=== PATIENT | female | born 1980 | race African-American/Black ===

== ENCOUNTER 2016-05-18 15:53 | Inpatient (IN) | payer BC ==
[~2016-05-18] VITALS: Ht 167.6 cm; Wt 88.9 kg
[2016-05-18 16:00] VITALS: BP 144/78
[2016-05-18] MEDS ORDERED: HYDROCHLOROTHIA25 MG ORAL (16:15)
--- NOTE | 2016-05-18 16:52 | Emergency Room Report ---
History of Present Illness General Chief Complaint: General Complaint Source: Patient Present Illness HPI 36 YOF sent here by Dr Sweet for surgery tomorrow for chronic hidradenitis for "multiple years," recently worse, L>R armpit area. Denies fever/chills. Not on Abx. History of HTN. No history of DM. Allergies: Coded Allergies: CEFACLOR (Verified Allergy, Unknown, 05/18/16) Patient History Past Medical History: HTN, other - hidradenitis, HTN Past Surgical History: none Social History: Denies: alcohol use, drug use, smoking Last Menstrual Period: 2011 Now: No Immunizations: UTD Reviewed Nursing Documentation: PMH: Agreed, PSxH: Agreed Nursing Documentation-PMH Past Medical History: No History, Except For Hx Hypertension: Yes Review of Systems All Other Systems: negative except mentioned in HPI Physical Exam Vital Signs Date Time Temp Pulse Resp B/P Pulse Ox O2 Delivery O2 Flow Rate FiO2 05/18/16 16:08 98.4 84 16 143/92 100 Room Air Sp02 EP Interpretation: reviewed, normal General Appearance: normal inspection, well appearing, no apparent distress, alert Head: normocephalic, atraumatic Eyes: bilateral eye EOMI, bilateral eye PERRL ENT: normal ENT inspection, hearing grossly normal, normal voice Neck: normal inspection, full range of motion, supple, no bony tend Respiratory: normal inspection, lungs clear, normal breath sounds, no respiratory distress, no retraction, no wheezing Cardiovascular #1: regular rate, rhythm, no edema Gastrointestinal: normal inspection, normal bowel sounds, non tender, soft, no guarding, no hernia Genitourinary: no CVA tenderness Musculoskeletal: normal inspection, back normal, normal range of motion, Lizz' s Sign negative Neurologic: normal inspection, alert, oriented x3, responsive, cement finisher III-XII nml as tested, motor strength/tone normal, speech normal Psychiatric: normal inspection, judgement/insight normal, mood/affect normal Skin: other - Bilateral L>R areas of fluctuance, ttp, erythema. Medical Decision Making Diagnostic Impression: Primary Impression: Hidradenitis axillaris ER Course 36 YOF with known bilateral hidradenitis. VSS. Afebrile. Pre-op labs, Coags, T&S sent Patient is NPO after admit Endorsed to Dr Rosa for admission med/surg at 5pm EKG Diagnostic Results Rate: normal Rhythm: NSR ST Segments: no acute changes ASA given to the pt in ED: No Rhythm Strip Diag. Results EP Interpretation: yes Rate: 84 Rhythm: NSR, no PVC's, no ectopy Chest X-Ray Diagnostic Results EP Interpretation: Yes Findings: no consolidation, no effusion, no pneumothorax, no acute cardiopulmonary disease Number of Views: 1 Last Vital Signs Date Time Temp Pulse Resp B/P Pulse Ox O2 Delivery O2 Flow Rate FiO2 05/18/16 16:08 98.4 84 16 143/92 100 Room Air Status: improved Disposition: ADMITTED INPATIENT Condition: Serious JEANINE ANGLIN M.D. May 18, 2016 16:52
[2016-05-18 17:03] LABS: BASOPHILS % (AUTO) 0.9 % (0.0-2.0); EOSINOPHILS % (AUTO) 2.6 % (0.0-3.0); LYMPHOCYTES % (AUTO) 31.5 % (20.0-45.0); MEAN CORPUSCULAR HEMOGLOBIN 27.3 PG (27.0-31.0); MEAN CORPUSCULAR HGB CONC 32.2 G/DL (32.0-36.0); MEAN CORPUSCULAR VOLUME 85 FL (80-99); MEAN PLATELET VOLUME 5.3 FL (6.5-10.1); MONOCYTES % (AUTO) 5.1 % (1.0-10.0); NEUTROPHILS % (AUTO) 59.9 % (45.0-75.0); PLATELET COUNT 435 K/UL (150-450); RED BLOOD COUNT 5.17 M/UL (4.20-5.40); RED CELL DISTRIBUTION WIDTH 11.8 % (11.6-14.8); WHITE BLOOD COUNT 10.6 K/UL (4.8-10.8)
[2016-05-18] MEDS ORDERED: Clindamycin 600mg 50 ML IVPB ONE (17:15)
[2016-05-18 17:18] LABS: PROTHROMBIN TIME 9.9 SEC (9.30-11.50)
[2016-05-18 17:27] LABS: ALANINE AMINOTRANSFERASE 29 U/L (3-33); ALBUMIN/GLOBULIN RATIO 1.2 (1.0-2.7); ANION GAP 16 (5-15); ASPARTATE AMINO TRANSFERASE 30 U/L (5-40); CALCIUM 10.1 mg/dL (8.6-10.2); CARBON DIOXIDE 27 mEQ/L (20-30); CHLORIDE 98 mEQ/L (98-107); GLOMERULAR FILTRATION RATE > 60 mL/min (>60); HEMOLYSIS 3; POTASSIUM 3.7 mEQ/L (3.4-4.9); SODIUM 141 mEQ/L (135-145); TOTAL PROTEIN 7.8 g/dL (6.6-8.7)
[2016-05-18 18:08] LABS: APPEARANCE,URINE CLOUDY; KETONES,URINE NEGATIVE (NEGATIVE); LEUKOCYTE ESTERASE ,URINE 2+ (NEGATIVE); NITRITE,URINE NEGATIVE (NEGATIVE); PH,URINE 6 (4.5-8.0); PROTEIN,URINE 1+ (NEGATIVE); UROBILINOGEN,URINE 1 MG/DL (0.0-1.0)
[2016-05-18 18:09] VITALS: BP 142/74
[2016-05-18 18:46] LABS: BACTERIA,URINE MODERATE /HPF; SQUAMOUS EPITHELIAL CELL,UR MANY /LPF (NONE/OCC)
[2016-05-18 19:00] VITALS: BP 139/79
--- NOTE | 2016-05-18 19:29 | History and Physical ---
History of Present Illness General Date patient seen: May 18, 2016 Time patient seen: 19:23 Reason for Hospitalization: General Complaint Present Illness HPI 36 y/o AA female with hx of hydradenitis for several years, not diagnosed until recently. She has significant disease in her bilateral axillae. She has taken abx as an outpatient before (doxy) and that stopped working according to the pt. Denied ever having fevers/chills, never has had surgery. She states that the pain has been increasing lately, preventing her from accomplishing some tasks, and that OTC pain meds are not longer providing relief. She takes hctz for well controlled HTN and claritin for allergies. Denies smoking, occasional alcohol use, no recreational drug use. Allergies: Coded Allergies: CEFACLOR (Verified Allergy, Unknown, 05/18/16) Medication History Scheduled Hydrochlorothiazide* (Hydrochlorothiazide*), 25 MG ORAL DAILY, (Reported) Patient History History Provided By: Patient Healthcare decision maker Resuscitation status Advanced Directive on File Past Medical/Surgical History Past Medical/Surgical History: (1) Hidradenitis axillaris Family History Family History: Patient reports no known family medical history. Social History Social History: (1) No significant social history Review of Systems Constitutional: Denies: chills, fever, malaise, no symptoms, other, see HPI, sweats, weakness Eye: Denies: acuity changes, blurred vision, discharge, double vision, eye pain , no symptoms, nose congestion, nose pain, other, see HPI, tearing ENT: Denies: ear discharge, ear pain, hearing loss, mouth pain, nasal discharge , no symptoms, nose congestion, nose pain, other, see HPI, throat pain, throat swelling Respiratory: Denies: LOPES, cough, no symptoms, orthopnea, other, see HPI, shortness of breath, sputum, stridor, wheezing Cardiovascular: Denies: PND, chest pain, edema, no symptoms, other, palpitations, see HPI, syncope Gastrointestinal: Denies: abdominal pain, constipation, diarrhea, hematemesis, melena, nausea, no symptoms, other, see HPI, vomiting Genitourinary: Denies: discharge, dysuria, frequency, hematuria, incontinence, no symptoms, other, pain, retention, see HPI, urgency, vag bleed/dc Skin: Reports: lesions - bilateral axillae with multiple abscesses, induration , rubor, tenderness to palpation, rash Psychiatric: Denies: HI, SI, anxiety, depressed feelings, emotional problems, hallucinations, no symptoms, other, prior hx, see HPI Neurological: Denies: dizziness, focal weakness, headache, no symptoms, numbness, other, paresthesia, see HPI, seizure, syncope, tingling, tremors Endocrine: Denies: excessive sweating, flushing, increased thirst, increased urine, intolerance to temperature, no symptoms, other, see HPI, unexplained weight loss Hematologic/Lymphatic: Denies: anemia, blood clots, diathesis, easy bleeding, easy bruising, no symptoms, other, see HPI, swollen glands Physical Exam General Appearance: WD/WN, no apparent distress, alert Lines, tubes and drains: peripheral HEENT: normocephalic, atraumatic, anicteric Neck: non-tender, normal alignment, supple Respiratory/Chest: chest wall non-tender, lungs clear, normal breath sounds, no respiratory distress Cardiovascular/Chest: normal peripheral pulses, normal rate, regular rhythm, no gallop/murmur Abdomen: normal bowel sounds, non tender, soft Extremities: normal range of motion, non-tender, normal inspection, no calf tenderness, normal capillary refill Skin Exam: other Neurologic: alert, oriented x 3, responsive, normal mood/affect Last 24 Hour Vital Signs Date Time Temp Pulse Resp B/P Pulse Ox O2 Delivery O2 Flow Rate FiO2 05/18/16 18:50 98.2 89 19 142/74 100 Room Air 05/18/16 18:09 98.2 89 19 142/74 100 Room Air 05/18/16 16:08 98.4 84 16 143/92 100 Room Air 05/18/16 16:00 98.0 80 18 144/78 99 Room Air Laboratory Tests Test 05/18/16 16:35 05/18/16 17:39 White Blood Count 10.6 K/UL (4.8-10.8) Red Blood Count 5.17 M/UL (4.20-5.40) Hemoglobin 14.1 G/DL (12.0-16.0) Hematocrit 43.9 % (37.0-47.0) Mean Corpuscular Volume 85 FL (80-99) Mean Corpuscular Hemoglobin 27.3 PG (27.0-31.0) Mean Corpuscular Hemoglobin Concent 32.2 G/DL (32.0-36.0) Red Cell Distribution Width 11.8 % (11.6-14.8) Platelet Count 435 K/UL (150-450) Mean Platelet Volume 5.3 FL (6.5-10.1) L Neutrophils (%) (Auto) 59.9 % (45.0-75.0) Lymphocytes (%) (Auto) 31.5 % (20.0-45.0) Monocytes (%) (Auto) 5.1 % (1.0-10.0) Eosinophils (%) (Auto) 2.6 % (0.0-3.0) Basophils (%) (Auto) 0.9 % (0.0-2.0) Prothrombin Time 9.9 SEC (9.30-11.50) Prothromb Time International Ratio 1.0 (0.9-1.1) Activated Partial Thromboplast Time 27 SEC (23-33) Sodium Level 141 mEQ/L (135-145) Potassium Level 3.7 mEQ/L (3.4-4.9) Chloride Level 98 mEQ/L (98-107) Carbon Dioxide Level 27 mEQ/L (20-30) Anion Gap 16 (5-15) H Blood Urea Nitrogen 11 mg/dL (7-23) Creatinine 1.0 mg/dL (0.5-0.9) H Estimat Glomerular Filtration Rate > 60 mL/min (>60) Glucose Level 77 mg/dL (74-106) Calcium Level 10.1 mg/dL (8.6-10.2) Total Bilirubin 0.4 mg/dL (0.0-1.2) Aspartate Amino Transf (AST/SGOT) 30 U/L (5-40) Alanine Aminotransferase (ALT/SGPT) 29 U/L (3-33) Alkaline Phosphatase 100 U/L (35-104) Total Protein 7.8 g/dL (6.6-8.7) Albumin 4.4 g/dL (3.5-5.2) Globulin 3.4 g/dL Albumin/Globulin Ratio 1.2 (1.0-2.7) Urine Color Yellow Urine Appearance Cloudy Urine pH 6 (4.5-8.0) Urine Specific [place] 1.025 (1.005-1.035) Urine Protein 1+ (NEGATIVE) H Urine Glucose (UA) Negative (NEGATIVE) Urine Ketones Negative (NEGATIVE) Urine Occult Blood 2+ (NEGATIVE) H Urine Nitrite Negative (NEGATIVE) Urine Bilirubin Negative (NEGATIVE) Urine Urobilinogen 1 MG/DL (0.0-1.0) H Urine Leukocyte Esterase 2+ (NEGATIVE) H Urine RBC 10-15 /HPF (0 - 2) H Urine WBC 5-10 /HPF (0 - 2) H Urine Squamous Epithelial Cells Many /LPF (NONE/OCC) H Urine Bacteria Moderate /HPF (NONE) H Height (Feet): 5 Height (Inches): 6.00 Weight (Pounds): 196 Assessment/Plan Problem List: (1) Abscess of axillary region Assessment & Plan: Admit to inpatient Start IV abx Pain control Supp care Consult plastic surgery to determine if pt needs operative debridement or I+D f/u blood cx If patient is required to have surgery, based on the patient's medical history, and other available ancillary data, the patient is a LOW risk for an INTERMEDIATE risk procedure. Per the most recent ACC/AHA guidelines, the patient does not need any further cardiopulmonary testing prior to the procedure and there do not appear to be any clear medical contraindications to proceeding with the proposed procedure. ICD Codes: L02.419 - Cutaneous abscess of limb, unspecified SNOMED: [id number] DEYA SHAH May 18, 2016 19:29
[2016-05-18] MEDS ORDERED: Miralax 17gm pkt ORAL PRN (19:30)
[2016-05-18] MEDS ORDERED: Milk of Magnesia 30ml Ud ORAL PRN (19:30)
[2016-05-18] MEDS ORDERED: Mylanta II UD 30ml ORAL PRN (19:30)
[2016-05-18] MEDS ORDERED: LORazepam 1mg tab ORAL PRN (19:30)
[2016-05-18 20:00] VITALS: BP 144/86
[2016-05-18] MEDS: Clindamycin 600mg 50 ML IV SCH (21:28)
[2016-05-18] MEDS: Docusate 100mg cap ORAL SCH (21:28)
[2016-05-19] VITALS (15 sets, daily range): BP systolic 118–152; BP diastolic 67–87
[2016-05-19] MEDS: Clindamycin 600mg 50 ML IV SCH ×3 (06:09→20:41)
[2016-05-19 07:32] LABS: ANION GAP 15 (5-15); CALCIUM 9.1 mg/dL (8.6-10.2); CARBON DIOXIDE 26 mEQ/L (20-30); CHLORIDE 102 mEQ/L (98-107); CREATININE 0.9 mg/dL (0.5-0.9); GLOMERULAR FILTRATION RATE > 60 mL/min (>60); HEMOLYSIS 1; POTASSIUM 4.2 mEQ/L (3.4-4.9); SODIUM 143 mEQ/L (135-145)
[2016-05-19] MEDS: Lactobacillus-GG tablet ORAL SCH ×2 (09:00→17:27)
[2016-05-19] MEDS: Docusate 100mg cap ORAL SCH ×2 (09:00→17:27)
[2016-05-19] MEDS ORDERED: Lidocaine 2% 20mg/ml/Epi 0.005mg/ml 20ml vial ONE (09:50)
[2016-05-19] MEDS ORDERED: Bacitracin 50000 Units Vial ONE (09:50)
[2016-05-19] MEDS ORDERED: Lidocaine 0.5% Epi 50 mL Vial ONE (09:50)
[2016-05-19] MEDS ORDERED: Lidocaine 1% 10mg/ml/Epi 0.005mg/ml 30ml vial INJ ONE (09:54)
--- NOTE | 2016-05-19 10:32 | Pre-Procedure Note/Attestation ---
Pre-Procedure Note/Attestation Complete Prior to Procedure Planned Procedure: bilateral Procedure Narrative: Bilateral axillary wound debridement and flap elevation Attestation I attest that I discussed the nature of the procedure; its benefits; risks and complications; and alternatives (and the risks and benefits of such alternatives ), prior to the procedure, with the patient (or the patient's legal sales representative meats). I attest that, if there was a reasonable possibility of needing a blood transfusion, the patient (or the patient's legal sales representative meats) was given the [facility] standardized written summary, pursuant to the Dioni Sarah Blood Safety Act ([place] Health and Safety Code # 1645, as amended). I attest that I re-evaluated the patient just prior to the surgery and that there has been no change in the patient's H&P, except as documented below: ANAY SHAH May 19, 2016 10:32
--- NOTE | 2016-05-19 10:33 | Operative Note - PDOC ---
Operative Note Operative Note Pre-op Diagnosis: Bilateral axillary infection Post-op Diagnosis: same as pre-op Surgeon: Wayne Customer Complaint Clerk: Natalie Anesthesia: general Specimen: yes Complications: none Condition: stable Estimated Blood Loss: minimal Implant(s) used?: No ANAY SHAH May 19, 2016 10:33
[2016-05-19] MEDS ORDERED: Rate Change PCA 1 Each MISC PRN (10:45)
[2016-05-19] MEDS ORDERED: Zolpidem 5mg tab ORAL PRN (10:45)
[2016-05-19] MEDS ORDERED: Metoprolol 5mg/5ml Inj ONE (11:00)
[2016-05-19] MEDS ORDERED: Metoclopramide 10mg/2ml Inj ONE (11:00)
[2016-05-19] MEDS ORDERED: NS Irrig 1000ml ONE (11:00)
[2016-05-19] MEDS ORDERED: Sterile Water Irrig 1000ml IRRIG ONE (11:00)
[2016-05-19] MEDS ORDERED: NS Irrig 1000ml IRRIG ONE (11:00)
[2016-05-19] MEDS ORDERED: Dexamethasone 4mg/ml vial ONE (11:00)
--- NOTE | 2016-05-19 11:05 | Diagnostic Imaging Report ---
Indication: PAIN Technique: One view of the chest Comparison: none Findings: Lungs and pleural spaces are clear. Heart size is borderline enlarged. Impression: No acute process Borderline cardiomegaly
[2016-05-19] MEDS ORDERED: Hydromorphone 0.5mg/0.5ml inj IVP PRN (12:00)
[2016-05-19] MEDS ORDERED: fentaNYL 100 mcg/2 mL IV PRN (12:00)
[2016-05-19] MEDS ORDERED: Norco 5mg/325mg tab ORAL PRN (12:00)
--- NOTE | 2016-05-19 12:01 | Anethesia Preoperative Eval ---
Anesthesia Pre-op PMH/ROS General Date of Evaluation: May 19, 2016 Time of Evaluation: 10:56 Anesthesiologist: Baljeet ASA Score: ASA 2 Mallampati Score Class I : Soft palate, uvula, fauces, pillars visible Class II: Soft palate, uvula, fauces visible Class III: Soft palate, base of uvula visible Class IV: Only hard plate visible Mallampati Classification: Class II Surgeon: Wayne Diagnosis: Hiradenitis Surgical Procedure: Removal Bilateral axilarry skin Family History: no anesthesia problems Allergies: Coded Allergies: CEFACLOR (Verified Allergy, Unknown, 05/18/16) Medications: see eMAR Past Medical History Cardiovascular: Reports: HTN Pulmonary: Denies: COPD, MIKAYLA, asthma, other Gastrointestinal/Genitourinary: Denies: CRI, ESRD, GERD, other Neurologic/Psychiatric: Denies: CVA, TIA, dementia, depression/anxiety, other Endocrine: Denies: DM, hypothyroidism, other, steroids HEENT: Denies: KIANA (L), KIANA (R), cataract (L), cataract (R), glaucoma, other Hematology/Immune: Denies: DVT, anemia, bleeding disorder, other Musculoskeletal/Integumentary: Denies: DDD, DJD, OA, RA, edema, other Other: obesity Anesthesia Pre-op Phys. Exam Physician Exam Last Vital Signs Date Time Temp Pulse Resp B/P Pulse Ox O2 Delivery O2 Flow Rate FiO2 05/19/16 08:00 98.4 88 20 133/82 99 Room Air Constitutional: NAD Neurologic: CN 2-12 intact Cardiovascular: RRR Respiratory: CTA Gastrointestinal: S/NT/ND Airway Exam Mallampati Score: Class II MO: full Anesthesia Pre-op A/P Labs Hematology Test 05/18/16 16:35 White Blood Count 10.6 K/UL (4.8-10.8) Red Blood Count 5.17 M/UL (4.20-5.40) Hemoglobin 14.1 G/DL (12.0-16.0) Hematocrit 43.9 % (37.0-47.0) Mean Corpuscular Volume 85 FL (80-99) Mean Corpuscular Hemoglobin 27.3 PG (27.0-31.0) Mean Corpuscular Hemoglobin Concent 32.2 G/DL (32.0-36.0) Red Cell Distribution Width 11.8 % (11.6-14.8) Platelet Count 435 K/UL (150-450) Mean Platelet Volume 5.3 FL (6.5-10.1) L Neutrophils (%) (Auto) 59.9 % (45.0-75.0) Lymphocytes (%) (Auto) 31.5 % (20.0-45.0) Monocytes (%) (Auto) 5.1 % (1.0-10.0) Eosinophils (%) (Auto) 2.6 % (0.0-3.0) Basophils (%) (Auto) 0.9 % (0.0-2.0) Coagulation Test 05/18/16 16:35 Prothrombin Time 9.9 SEC (9.30-11.50) Prothromb Time International Ratio 1.0 (0.9-1.1) Activated Partial Thromboplast Time 27 SEC (23-33) Chemistry Test 05/18/16 16:35 05/19/16 06:05 Sodium Level 141 mEQ/L (135-145) 143 mEQ/L (135-145) Potassium Level 3.7 mEQ/L (3.4-4.9) 4.2 mEQ/L (3.4-4.9) Chloride Level 98 mEQ/L (98-107) 102 mEQ/L (98-107) Carbon Dioxide Level 27 mEQ/L (20-30) 26 mEQ/L (20-30) Anion Gap 16 (5-15) H 15 (5-15) Blood Urea Nitrogen 11 mg/dL (7-23) 10 mg/dL (7-23) Creatinine 1.0 mg/dL (0.5-0.9) H 0.9 mg/dL (0.5-0.9) Estimat Glomerular Filtration Rate > 60 mL/min (>60) > 60 mL/min (>60) Glucose Level 77 mg/dL (74-106) 107 mg/dL (74-106) H Calcium Level 10.1 mg/dL (8.6-10.2) 9.1 mg/dL (8.6-10.2) Total Bilirubin 0.4 mg/dL (0.0-1.2) Aspartate Amino Transf (AST/SGOT) 30 U/L (5-40) Alanine Aminotransferase (ALT/SGPT) 29 U/L (3-33) Alkaline Phosphatase 100 U/L (35-104) Total Protein 7.8 g/dL (6.6-8.7) Albumin 4.4 g/dL (3.5-5.2) Globulin 3.4 g/dL Albumin/Globulin Ratio 1.2 (1.0-2.7) Urine Test Test 05/19/16 06:00 Urine HCG, Qualitative Negative AUSTIN LOVE M.D. May 19, 2016 12:01
--- NOTE | 2016-05-19 12:54 | Immediate Post-Op Evaluation ---
Immediate Post-Op Evalulation Immediate Post-Op Evalulation Procedure: Resection of axillary skin Date of Evaluation: May 19, 2016 Time of Evaluation: 13:00 IV Fluids: 300 Blood Products: 0 Estimated Blood Loss: 100 Urinary Output: 0 Blood Pressure Systolic: 120 Blood Pressure Diastolic: 80 Pulse Rate: 80 Respiratory Rate: 20 O2 Sat by Pulse Oximetry: 98 Temperature (Fahrenheit): 98 Pain Score (1-10): 3 Nausea: No Vomiting: No Complications na Patient Status: awake Hydration Status: adequate Drug: Clindamycin 600mg Given Within 1 Hr of Incision: Yes Time Given: 11:15 AUSTIN LOVE M.D. May 19, 2016 12:54
[2016-05-19] MEDS: PCA HYDROmorphone 1mg/ml 30 ML IV PRN (14:16)
--- NOTE | 2016-05-19 14:55 | General Progress Note ---
Assessment/Plan Problem List: (1) Abscess of axillary region Assessment & Plan: s/p I+D of bilateral axillae Cont IV abx Pain control Supp care f/u blood cx f/u wound cultures ICD Codes: L02.419 - Cutaneous abscess of limb, unspecified SNOMED: [id number] Subjective Date patient seen: May 19, 2016 Time patient seen: 14:47 ROS Limited/Unobtainable: No Constitutional: Denies: chills, diaphoresis, fever, malaise, no symptoms, other , weakness HEENT: Denies: blurred vision, double vision, ear discharge, ear pain, eye pain , mouth pain, mouth swelling, no symptoms, nose congestion, nose pain, other, tearing, throat pain, throat swelling Cardiovascular: Denies: chest pain, edema, irregular heart rate, lightheadedness, no symptoms, other, palpitations, syncope Respiratory: Denies: SOB at rest, SOB with excertion, cough, no symptoms, orthopnea, other, shortness of breath, sputum, stridor, wheezing Gastrointestinal/Abdominal: Denies: abdomen distended, abdominal pain, black stools, blood in stool, constipated, diarrhea, difficulty swallowing, nausea, no symptoms, other, poor appetite, poor fluid intake, rectal bleeding, tarry stools, vomiting Genitourinary: Denies: burning, discharge, flank pain, frequency, hematuria, incontinence, no symptoms, other, pain, urgency Neurologic/Psychiatric: Denies: anxiety, depressed, emotional problems, headache, no symptoms, numbness, other, paresthesia, pre-existing deficit, seizure, tingling, tremors, weakness Endocrine: Denies: excessive sweating, flushing, increased hunger, increased thirst, increased urine, intolerance to cold, intolerance to heat, no symptoms, other, unexplained weight gain, unexplained weight loss Hematologic/Lymphatic: Denies: anemia, easy bleeding, easy bruising, no symptoms, other Allergies: Coded Allergies: CEFACLOR (Verified Allergy, Unknown, 05/18/16) Subjective s/p I+D of bilateral axillae, no chest pain or dyspnea, postop pain well controlled. Objective Last 24 Hour Vital Signs Date Time Temp Pulse Resp B/P Pulse Ox O2 Delivery O2 Flow Rate FiO2 05/19/16 14:16 19 05/19/16 13:05 86 12 122/74 99 Simple Mask 6.0 05/19/16 13:00 82 19 138/75 99 Simple Mask 6.0 05/19/16 12:55 97.5 89 16 133/70 99 Simple Mask 6.0 05/19/16 12:54 80 20 98 05/19/16 08:00 98.4 88 20 133/82 99 Room Air 05/19/16 04:00 97.5 86 18 120/81 99 Room Air 05/19/16 00:00 98.1 75 18 126/74 94 Room Air 05/18/16 20:00 98.2 94 20 144/86 97 Room Air 05/18/16 19:00 97.9 87 18 139/79 100 Room Air 05/18/16 18:50 98.2 89 19 142/74 100 Room Air 05/18/16 18:09 98.2 89 19 142/74 100 Room Air 05/18/16 16:08 98.4 84 16 143/92 100 Room Air 05/18/16 16:00 98.0 80 18 144/78 99 Room Air Intake and Output 05/18/16 05/19/16 19:00 07:00 Intake Total 300 ml Balance 300 ml Intake IV Total 300 ml Laboratory Tests 05/18/16 16:35: White Blood Count 10.6, Red Blood Count 5.17, Hemoglobin 14.1, Hematocrit 43.9, Mean Corpuscular Volume 85, Mean Corpuscular Hemoglobin 27.3, Mean Corpuscular Hemoglobin Concent 32.2, Red Cell Distribution Width 11.8, Platelet Count 435, Mean Platelet Volume 5.3L, Neutrophils (%) (Auto) 59.9, Lymphocytes (%) (Auto) 31.5, Monocytes (%) (Auto) 5.1, Eosinophils (%) (Auto) 2.6, Basophils (%) (Auto ) 0.9, Prothrombin Time 9.9, Prothromb Time International Ratio 1.0, Activated Partial Thromboplast Time 27, Sodium Level 141, Potassium Level 3.7, Chloride Level 98, Carbon Dioxide Level 27, Anion Gap 16H, Blood Urea Nitrogen 11, Creatinine 1.0H, Estimat Glomerular Filtration Rate > 60, Glucose Level 77, Calcium Level 10.1, Total Bilirubin 0.4, Aspartate Amino Transf (AST/SGOT) 30, Alanine Aminotransferase (ALT/SGPT) 29, Alkaline Phosphatase 100, Total Protein 7.8, Albumin 4.4, Globulin 3.4, Albumin/Globulin Ratio 1.2 05/18/16 17:39: Urine Color Yellow, Urine Appearance Cloudy, Urine pH 6, Urine Specific [place] 1.025, Urine Protein 1+H, Urine Glucose (UA) Negative, Urine Ketones Negative, Urine Occult Blood 2+H, Urine Nitrite Negative, Urine Bilirubin Negative, Urine Urobilinogen 1H, Urine Leukocyte Esterase 2+H, Urine RBC 10-15H, Urine WBC 5-10H , Urine Squamous Epithelial Cells ManyH, Urine Bacteria ModerateH 05/19/16 06:00: Urine HCG, Qualitative Negative 05/19/16 06:05: Sodium Level 143, Potassium Level 4.2, Chloride Level 102, Carbon Dioxide Level 26, Anion Gap 15, Blood Urea Nitrogen 10, Creatinine 0.9, Estimat Glomerular Filtration Rate > 60, Glucose Level 107H, Calcium Level 9.1 Height (Feet): 5 Height (Inches): 6.00 Weight (Pounds): 196 General Appearance: WD/WN, no apparent distress, alert EENT: PERRL/EOMI Neck: non-tender, normal alignment, supple Cardiovascular: normal peripheral pulses, normal rate, regular rhythm, no gallop/murmur Respiratory/Chest: chest wall non-tender, lungs clear, normal breath sounds, no respiratory distress Abdomen: normal bowel sounds, non tender, soft Extremities: normal range of motion, non-tender, normal inspection, no calf tenderness Neurologic: alert, oriented x 3, responsive, normal mood/affect Skin: normal pigmentation, warm/dry, no diaphoresis DEYA SHAH May 19, 2016 14:55
[2016-05-19] MEDS: PCA shift volume MISC SCH ×2 (15:00→23:00)
--- NOTE | 2016-05-19 16:18 | Consultation ---
DATE OF CONSULTATION: 05/19/2016 HISTORY OF PRESENT ILLNESS: This is a 36-year-old female, admitted to the emergency room last night for bilateral axillary pain and drainage with associated abscesses. She was admitted, started on IV antibiotics and she has been complaining of these symptoms for quite some time now with exacerbation of her symptoms as stated. The patient was admitted and upon evaluation by me, I felt that these areas needed to be addressed surgically. PAST MEDICAL HISTORY: Significant for hidradenitis. PAST SURGICAL HISTORY: Significant for tonsillectomy. MEDICATIONS: Intermittent antibiotic use. ALLERGIES: Cefaclor. PHYSICAL EXAMINATION: GENERAL: The patient is alert and oriented. HEART: Regular rate and rhythm. ABDOMEN: Soft, nontender, and nondistended. CHEST: Clear to auscultation bilaterally. EXTREMITIES: Examination of bilateral axillae revealed multiple areas of abscesses, widely distributed throughout the axilla and extending on to the breast on the right side. On the left side, the axilla axillary abscesses are prolific as well. ASSESSMENT AND PLAN: This is a 36-year-old female, admitted for bilateral axillary abscesses. She was started on IV antibiotics. PLAN: The plan will be to perform a staged treatment with the debridement and flap elevation with subsequent wound care either with wet-to-dry dressing versus wound VAC, followed by definitive flap inset in 3 to 5 days. The patient understands the plan and agrees to proceed. Jefferson Black M.D. DR: LALO JOB#: [id number] CC:
[2016-05-19] MEDS: Morphine Sulfate 4mg/ml Inj IVP PRN ×2 (17:28→21:12)
--- NOTE | 2016-05-19 20:28 | Operative Note - Dictated ---
DATE OF OPERATION: 05/19/2016 PREOPERATIVE DIAGNOSES: Bilateral infected axillary masses and right breast abscess. POSTOPERATIVE DIAGNOSES: Bilateral infected axillary masses and right breast abscess. PROCEDURES: 1. Radical excision of infected left axillary mass. 2. Radical excision of infected right axillary mass. 3. Excision of right breast abscess. 4. Elevation of a thoracodorsal artery based flap for staged closure of left axillary wound. 5. Elevation of a thoracodorsal artery flap for staged closure of right axillary wound. 6. Elevation of a right chest wall flap for staged closure of right axillary wound. 7. Elevation of a left chest wall flap for staged closure of left axillary wound. SURGEON: Jefferson Black M.D. ASBESTOS COVERER: Karl Estrada M.D. ANESTHESIA: General. COMPLICATIONS: None. DRAINS: None. SPECIMEN: Included bilateral axillary tissue and right breast tissue. DISPOSITION: Stable to the recovery room. INDICATIONS FOR SURGERY: This is a 36-year-old, female, admitted to the emergency room for bilateral infected axillary regions. She was started on IV antibiotics. I saw the patient in evaluation and felt that she was an appropriate candidate for staged excision and reconstruction with the understanding that given the fact that this is an infected mass that she would not be a candidate for immediate reconstruction and she understood that she would require more than one operation to achieve this goal. She understood the risks and benefits of surgery and agreed to proceed. DETAILS OF THE OPERATION: The patient was brought to the operating room and laid supine on the operating table. Her bilateral axillary regions were prepped and draped in a sterile and usual fashion. Preoperatively, there were areas that needed to be excised were marked out as elliptical type of incisions. We first began the left side. A #10 blade was used to make an elliptical incision to allow for radical excision of the infected axillary mass all the way down to the level of the axillary fascia. Once the radical excision was completed, we then proceeded to elevate chest wall flaps based off of perforators of the thoracoacromial artery. This was elevated at the fasciocutaneous level with proximal and distal incisions made to further mobilize the flap. This was not sufficient, however, to close as such a thoracodorsal artery based flap was also elevated based off of the lateral chest wall and was designed and a #10 blade was then used to make a U-shaped incision of the flap and the flap was then fully mobilized. This was based off of perforators of the thoracodorsal artery and with the flap fully mobilized it was noted that it could be easily inset into the defect. It was noted to fully cover the wounds along with the chest wall flap that had been elevated. However, given the fact that this was an infected case we decided that the flap should be put back in situ and the wound was then copiously irrigated with pulse lavage and hemostasis was then achieved. The flap was then placed back in situ to allow for clearance of the infection and the patient will be brought back in three to five days for definitive flap inset and this also will allow for the delayed phenomenon to increase the vascularity of the thoracodorsal artery flap. In a similar fashion, the contralateral axilla was then addressed on the right side. An elliptical incision was also made around the infected mass. Dissection was then carried down all way to the axillary fascia. The wound was irrigated and complete excision of the mass was then completed with corresponding chest wall flap elevated as was done on the other side based off of perforators of the thoracoacromial artery with proximal and distal incisions made to further mobilize the flap and the corresponding thoracodorsal artery flap was also elevated on this side based off of perforators of thoracodorsal artery. The U-shaped incision was made using a #10 blade. The flap was then fully mobilized all way to the margins of the defect to the point being at the base of the axilla and the flap was noted to fully cover the defect. The wound was then copiously irrigated and pulse lavaged, and hemostasis was achieved. Again, given the fact this wound area is inspected, it was felt that it would not be appropriate to provide definitive flap coverage at this time and so the flap was then placed in situ with the plan of bringing the patient back in 3 to 5 days for definitive flap inset. The right breast abscess was then excised using an elliptical incision all way down to healthy breast fat and the wound was then copiously irrigated. Following this, all the wounds were then covered with a wound VAC sponge. The wound VAC was then set to 125 mmHg. The patient tolerated the procedure well and there was no complications. Jefferson Black M.D. DR: RICKEY JOB#: [id number] CC:
[2016-05-19] MEDS: D5NS 1,000 ML IV SCH ×2 (20:41)
[2016-05-19] MEDS: Heparin 5000 units/ml inj SUBQ SCH (20:42)
[2016-05-20 00:49] VITALS: BP 108/57
[2016-05-20 04:00] VITALS: BP 109/57
[2016-05-20] MEDS: Clindamycin 600mg 50 ML IV SCH ×3 (06:04→22:09)
[2016-05-20] MEDS: PCA shift volume MISC SCH ×3 (07:02→23:00)
[2016-05-20 08:00] VITALS: BP 124/72
[2016-05-20] MEDS: Docusate 100mg cap ORAL SCH ×2 (08:16→17:27)
[2016-05-20] MEDS: Lactobacillus-GG tablet ORAL SCH ×2 (08:17→17:27)
[2016-05-20] MEDS: Morphine Sulfate 2mg/ml Inj IVP PRN ×2 (08:17→13:23)
--- NOTE | 2016-05-20 08:18 | General Progress Note ---
Progress Note Progress Note Pt seen and examined. POD# 1 and doing well. Wound vac is functioning well. Plan for OR on Monday for definitive flap closure of wounds. ANAY Yarbrough MD May 20, 2016 08:18
[2016-05-20] MEDS: Heparin 5000 units/ml inj SUBQ SCH ×2 (08:22→22:10)
[2016-05-20 12:00] VITALS: BP 133/64
[2016-05-20] MEDS: PCA HYDROmorphone 1mg/ml 30 ML IV PRN (14:01)
[2016-05-20 16:00] VITALS: BP 123/71
[2016-05-20] MEDS: D5NS 1,000 ML IV SCH (16:00)
--- NOTE | 2016-05-20 17:18 | General Progress Note ---
Assessment/Plan Problem List: (1) Abscess of axillary region Assessment & Plan: s/p I+D of bilateral axillae, POD#1 Cont IV abx Pain control Supp care f/u blood cx f/u wound cultures ICD Codes: L02.419 - Cutaneous abscess of limb, unspecified SNOMED: 62935300 Subjective Date patient seen: May 20, 2016 Time patient seen: 17:17 ROS Limited/Unobtainable: No Constitutional: Denies: chills, diaphoresis, fever, malaise, no symptoms, other , weakness HEENT: Denies: blurred vision, double vision, ear discharge, ear pain, eye pain , mouth pain, mouth swelling, no symptoms, nose congestion, nose pain, other, tearing, throat pain, throat swelling Cardiovascular: Denies: chest pain, edema, irregular heart rate, lightheadedness, no symptoms, other, palpitations, syncope Respiratory: Denies: SOB at rest, SOB with excertion, cough, no symptoms, orthopnea, other, shortness of breath, sputum, stridor, wheezing Gastrointestinal/Abdominal: Denies: abdomen distended, abdominal pain, black stools, blood in stool, constipated, diarrhea, difficulty swallowing, nausea, no symptoms, other, poor appetite, poor fluid intake, rectal bleeding, tarry stools, vomiting Genitourinary: Denies: burning, discharge, flank pain, frequency, hematuria, incontinence, no symptoms, other, pain, urgency Neurologic/Psychiatric: Denies: anxiety, depressed, emotional problems, headache, no symptoms, numbness, other, paresthesia, pre-existing deficit, seizure, tingling, tremors, weakness Endocrine: Denies: excessive sweating, flushing, increased hunger, increased thirst, increased urine, intolerance to cold, intolerance to heat, no symptoms, other, unexplained weight gain, unexplained weight loss Hematologic/Lymphatic: Denies: anemia, easy bleeding, easy bruising, no symptoms, other Allergies: Coded Allergies: CEFACLOR (Verified Allergy, Unknown, 05/18/16) Subjective s/p I+D of bilateral axillae, POD#1, no chest pain or dyspnea, postop pain well controlled. Objective Last 24 Hour Vital Signs Date Time Temp Pulse Resp B/P Pulse Ox O2 Delivery O2 Flow Rate FiO2 05/20/16 16:00 97.9 72 20 123/71 99 Room Air 05/20/16 14:31 97.9 05/20/16 13:53 97.9 05/20/16 12:00 97.9 67 19 133/64 100 Room Air 05/20/16 12:00 18 05/20/16 08:00 18 05/20/16 08:00 97.7 73 20 124/72 100 Room Air 05/20/16 04:00 18 05/20/16 04:00 97.7 73 19 109/57 97 Room Air 05/20/16 00:49 97.5 71 21 108/57 95 Room Air 05/20/16 00:00 18 05/19/16 22:12 98.1 05/19/16 20:00 18 05/19/16 20:00 98.1 84 18 118/67 95 Room Air Intake and Output 05/19/16 05/20/16 19:00 07:00 Intake Total 800 ml 765 ml Output Total 300 ml 800 ml Balance 500 ml -35 ml Intake Oral 240 ml IV Total 800 ml 525 ml Output Urine Total 800 ml Estimated Blood Loss 300 ml # Voids 1 1 Height (Feet): 5 Height (Inches): 6.00 Weight (Pounds): 196 Objective General: alert, cooperative, no distress, appears stated age Head: normocephalic, without obvious abnormality, atraumatic Eyes: conjunctivae/corneas clear. PERRL, EOM's intact Throat: lips, mucosa, and tongue normal. MMM Neck: supple, symmetrical, trachea midline, and no JVD Lungs: clear to auscultation bilaterally Heart: regular rate and rhythm, S1, S2 normal, no murmur, click, rub or gallop Abdomen: soft, non-tender, non-distended, bowel sounds normal; no masses or organomegaly Extremities: extremities normal, atraumatic, no cyanosis or edema Pulses: 2+ and symmetric Skin: skin color, texture, turgor normal; no rashes or lesions Neurologic: grossly normal, no focal deficits DEYA SHAH May 20, 2016 17:18
[2016-05-20 20:00] VITALS: BP 135/70
[2016-05-21] VITALS: BP 117/63
[2016-05-21 04:00] VITALS: BP 145/75
[2016-05-21] MEDS: Clindamycin 600mg 50 ML IV SCH ×2 (05:49→14:36)
[2016-05-21] MEDS: PCA shift volume MISC SCH (07:00)
[2016-05-21] MEDS: D5NS 1,000 ML IV SCH (07:45)
[2016-05-21 08:00] VITALS: BP 130/75
[2016-05-21] MEDS: Lactobacillus-GG tablet ORAL SCH ×2 (09:44→18:28)
[2016-05-21] MEDS: Docusate 100mg cap ORAL SCH ×2 (09:44→18:28)
[2016-05-21] MEDS: Heparin 5000 units/ml inj SUBQ SCH ×2 (09:46→21:55)
[2016-05-21 12:00] VITALS: BP 138/84
[2016-05-21] MEDS ORDERED: PCA HYDROmorphone 1mg/ml 30 ML IV PRN (12:00)
[2016-05-21] MEDS ORDERED: Rate Change PCA 1 Each MISC PRN (12:00)
--- NOTE | 2016-05-21 12:53 | General Progress Note ---
Assessment/Plan Problem List: (1) Abscess of axillary region Assessment & Plan: s/p I+D of bilateral axillae, POD#2 Cont IV abx Pain control Supp care f/u blood cx f/u wound cultures ICD Codes: L02.419 - Cutaneous abscess of limb, unspecified SNOMED: [id number] Subjective Date patient seen: May 21, 2016 Time patient seen: 12:52 ROS Limited/Unobtainable: No Allergies: Coded Allergies: CEFACLOR (Verified Allergy, Unknown, 05/18/16) Subjective s/p I+D of bilateral axillae, POD#2, no chest pain or dyspnea, postop pain well controlled. Objective Last 24 Hour Vital Signs Date Time Temp Pulse Resp B/P Pulse Ox O2 Delivery O2 Flow Rate FiO2 05/21/16 12:00 97.9 83 20 138/84 99 Room Air 05/21/16 08:00 98.1 82 20 130/75 100 Room Air 05/21/16 08:00 16 05/21/16 04:00 16 05/21/16 04:00 98.1 82 19 145/75 100 Room Air 05/21/16 00:00 18 05/21/16 00:00 97.5 77 20 117/63 97 Room Air 05/20/16 20:00 18 05/20/16 20:00 98.2 69 18 135/70 96 Room Air 05/20/16 16:00 97.9 72 20 123/71 99 Room Air 05/20/16 16:00 18 05/20/16 14:31 97.9 05/20/16 13:53 97.9 Intake and Output 05/20/16 05/21/16 19:00 07:00 Intake Total 800 ml 350 ml Output Total 30 ml Balance 800 ml 320 ml Intake Oral 450 ml IV Total 350 ml 350 ml Output Urine Total 0 ml Drainage Total 30 ml # Voids 3 Height (Feet): 5 Height (Inches): 6.00 Weight (Pounds): 196 Objective General: alert, cooperative, no distress, appears stated age Head: normocephalic, without obvious abnormality, atraumatic Eyes: conjunctivae/corneas clear. PERRL, EOM's intact Throat: lips, mucosa, and tongue normal. MMM Neck: supple, symmetrical, trachea midline, and no JVD Lungs: clear to auscultation bilaterally Heart: regular rate and rhythm, S1, S2 normal, no murmur, click, rub or gallop Abdomen: soft, non-tender, non-distended, bowel sounds normal; no masses or organomegaly Extremities: extremities normal, atraumatic, no cyanosis or edema Pulses: 2+ and symmetric Skin: skin color, texture, turgor normal; no rashes or lesions Neurologic: grossly normal, no focal deficits DEYA SHAH May 21, 2016 12:53
[2016-05-21] MEDS ORDERED: PCA shift volume MISC SCH (15:00)
[2016-05-21 16:35] VITALS: BP 138/76
[2016-05-21 20:26] VITALS: BP 128/66
[2016-05-21] MEDS: Clindamycin 150mg cap ORAL SCH (21:53)
[2016-05-22] VITALS: BP 134/77
[2016-05-22 04:00] VITALS: BP 128/67
[2016-05-22] MEDS: Clindamycin 150mg cap ORAL SCH ×3 (06:25→21:06)
[2016-05-22 08:00] VITALS: BP 123/58
[2016-05-22] MEDS: D5NS 1,000 ML IV SCH (08:00)
[2016-05-22] MEDS: Docusate 100mg cap ORAL SCH ×2 (08:42→18:00)
[2016-05-22] MEDS: Lactobacillus-GG tablet ORAL SCH ×2 (08:42→18:00)
[2016-05-22] MEDS: Heparin 5000 units/ml inj SUBQ SCH ×3 (08:45→21:07)
--- NOTE | 2016-05-22 10:45 | General Progress Note ---
Assessment/Plan Problem List: (1) Abscess of axillary region Assessment & Plan: s/p I+D of bilateral axillae, POD#3 Cont IV abx Pain control Supp care f/u blood cx f/u wound cultures ICD Codes: L02.419 - Cutaneous abscess of limb, unspecified SNOMED: [id number] Subjective Date patient seen: May 22, 2016 Time patient seen: 10:44 ROS Limited/Unobtainable: No Allergies: Coded Allergies: CEFACLOR (Verified Allergy, Unknown, 05/18/16) Subjective s/p I+D of bilateral axillae, POD#3, no chest pain or dyspnea, postop pain well controlled. Objective Last 24 Hour Vital Signs Date Time Temp Pulse Resp B/P Pulse Ox O2 Delivery O2 Flow Rate FiO2 05/22/16 09:13 97.7 05/22/16 04:00 97.7 84 20 128/67 98 Room Air 05/22/16 00:00 98.2 83 20 134/77 97 Room Air 05/21/16 20:26 98.4 84 19 128/66 93 Room Air 05/21/16 20:00 16 05/21/16 18:58 98.4 05/21/16 16:35 98.2 94 18 138/76 99 Room Air 05/21/16 16:00 16 05/21/16 12:00 97.9 83 20 138/84 99 Room Air 05/21/16 12:00 16 Intake and Output 05/21/16 05/22/16 19:00 07:00 Intake Total 360 ml 760 ml Output Total 630 ml 50 ml Balance -270 ml 710 ml Intake Oral 360 ml 760 ml Output Urine Total 600 ml Drainage Total 30 ml 50 ml # Voids 4 7 Height (Feet): 5 Height (Inches): 6.00 Weight (Pounds): 196 Objective General: alert, cooperative, no distress, appears stated age Head: normocephalic, without obvious abnormality, atraumatic Eyes: conjunctivae/corneas clear. PERRL, EOM's intact Throat: lips, mucosa, and tongue normal. MMM Neck: supple, symmetrical, trachea midline, and no JVD Lungs: clear to auscultation bilaterally Heart: regular rate and rhythm, S1, S2 normal, no murmur, click, rub or gallop Abdomen: soft, non-tender, non-distended, bowel sounds normal; no masses or organomegaly Extremities: extremities normal, atraumatic, no cyanosis or edema Pulses: 2+ and symmetric Skin: skin color, texture, turgor normal; no rashes or lesions Neurologic: grossly normal, no focal deficits DEYA SHAH May 22, 2016 10:45
[2016-05-22 12:00] VITALS: BP 110/70
[2016-05-22 15:57] VITALS: BP 132/67
[2016-05-22 20:00] VITALS: BP 127/78
[2016-05-23] VITALS (12 sets, daily range): BP systolic 118–153; BP diastolic 54–86
[2016-05-23] MEDS: D5NS 1,000 ML IV SCH (04:00)
[2016-05-23] MEDS: Clindamycin 150mg cap ORAL SCH ×3 (07:06→21:21)
[2016-05-23] MEDS ORDERED: Lidocaine 1% Plain 30 ml INJ PRN (07:15)
[2016-05-23] MEDS ORDERED: Sodium Bicarbonate 8.4% 50ml Inj IV PRN (07:15)
[2016-05-23] MEDS ORDERED: Heparin 2000 units/Ns 1000ml INJ PRN (07:15)
[2016-05-23] MEDS: Heparin 5000 units/ml inj SUBQ SCH ×2 (09:00→20:06)
[2016-05-23] MEDS: Lactobacillus-GG tablet ORAL SCH ×2 (09:00→17:14)
[2016-05-23] MEDS: Docusate 100mg cap ORAL SCH ×2 (09:00→17:14)
[2016-05-23] MEDS ORDERED: Lidocaine 1% 10mg/ml/Epi 0.005mg/ml 30ml vial INJ ONE (09:37)
[2016-05-23] MEDS ORDERED: Bacitracin 50000 Units Vial ONE (09:37)
--- NOTE | 2016-05-23 09:45 | Operative Note - PDOC ---
Operative Note Operative Note Pre-op Diagnosis: Bilateral axillary wound Procedure: Bilateral axillary wound flap closure Post-op Diagnosis: same as pre-op Surgeon: Wayne Assembler Ping Pong Table: Rut Anesthesia: general Specimen: yes Complications: none Condition: stable Estimated Blood Loss: minimal Drains: RAJ Implant(s) used?: No ANAY SHAH May 23, 2016 09:45
--- NOTE | 2016-05-23 09:45 | Anethesia Preoperative Eval ---
Anesthesia Pre-op PMH/ROS General Date of Evaluation: May 23, 2016 Anesthesiologist: Yo ASA Score: ASA 2 Mallampati Score Class I : Soft palate, uvula, fauces, pillars visible Class II: Soft palate, uvula, fauces visible Class III: Soft palate, base of uvula visible Class IV: Only hard plate visible Mallampati Classification: Class II Surgeon: Wayne Diagnosis: Bilateral axillay HS now with open wounds Surgical Procedure: Bilateral axillary wound closure Anesthesia History: none Family History: no anesthesia problems Allergies: Coded Allergies: CEFACLOR (Verified Allergy, Unknown, 05/18/16) Medications: see eMAR Past Medical History Cardiovascular: Reports: HTN, Denies: CAD, [place], arrhythmia, other, valve dz Pulmonary: Denies: COPD, MIKAYLA, asthma, other Gastrointestinal/Genitourinary: Denies: CRI, ESRD, GERD, other Neurologic/Psychiatric: Denies: CVA, TIA, dementia, depression/anxiety, other Endocrine: Denies: DM, hypothyroidism, other, steroids HEENT: Denies: [place] (L), [place] (R), cataract (L), cataract (R), glaucoma, other Hematology/Immune: Denies: DVT, anemia, bleeding disorder, other Musculoskeletal/Integumentary: Reports: other - hidradenitis suppurativa, Denies: DDD, DJD, OA, RA, edema Other: obesity PSxH Narrative: bilateral axillary I&D Anesthesia Pre-op Phys. Exam Physician Exam Last Vital Signs Date Time Temp Pulse Resp B/P Pulse Ox O2 Delivery O2 Flow Rate FiO2 05/23/16 08:00 98.2 98 19 121/69 100 Room Air 05/19/16 16:05 3.0 Constitutional: NAD Cardiovascular: RRR Respiratory: CTA Airway Exam Mallampati Score: Class II MO: full ROM: full Teeth: intact Anesthesia Pre-op A/P Labs see chart Risk Assessment & Plan Assessment: ASA II Plan: GA Status Change Before Surgery: No Pre-Antibiotics Drug: Ancef 2g Given Within 1 Hr of Incision: Yes Time Given: 10:15 ALIYA QUINONEZ M.D. May 23, 2016 09:45
--- NOTE | 2016-05-23 09:45 | Pre-Procedure Note/Attestation ---
Pre-Procedure Note/Attestation Complete Prior to Procedure Planned Procedure: bilateral Procedure Narrative: Bilateral axillary wound flap closure Indications for Procedure Pre-Operative Diagnosis: Bilateral axillary wound Attestation I attest that I discussed the nature of the procedure; its benefits; risks and complications; and alternatives (and the risks and benefits of such alternatives ), prior to the procedure, with the patient (or the patient's legal b2b outside sales representative). I attest that, if there was a reasonable possibility of needing a blood transfusion, the patient (or the patient's legal b2b outside sales representative) was given the [facility] standardized written summary, pursuant to the Dioni Mcge[place] Blood Safety Act ([place] Health and Safety Code # 1645, as amended). I attest that I re-evaluated the patient just prior to the surgery and that there has been no change in the patient's H&P, except as documented below: ANAY SHAH May 23, 2016 09:45
[2016-05-23] MEDS ORDERED: fentaNYL 250mcg/5ml ONE (10:00)
[2016-05-23] MEDS ORDERED: Sterile Water Irrig 1000ml IRRIG ONE (10:00)
[2016-05-23] MEDS ORDERED: Propofol 10mg/ml 20ml IV ONE (10:00)
[2016-05-23] MEDS ORDERED: Metoclopramide 10mg/2ml Inj ONE (10:00)
[2016-05-23] MEDS ORDERED: Zemuron 50mg/5ml Inj IV ONE (10:00)
[2016-05-23] MEDS ORDERED: Midazolam 2mg/2ml Inj ONE (10:00)
[2016-05-23] MEDS ORDERED: Lidocaine 1% MPF 10mg/ml 5ml ONE (10:00)
[2016-05-23] MEDS ORDERED: NS Irrig 1000ml ONE (10:00)
[2016-05-23] MEDS ORDERED: LR 1000ml ONE (10:00)
[2016-05-23] MEDS ORDERED: Dexamethasone 4mg/ml vial ONE (10:00)
[2016-05-23] MEDS ORDERED: NS Irrig 1000ml IRRIG ONE (10:10)
[2016-05-23] MEDS ORDERED: LR 1000ml 1,000 ML IVLG SCH (10:40)
--- NOTE | 2016-05-23 10:40 | Immediate Post-Op Evaluation ---
Immediate Post-Op Evalulation Immediate Post-Op Evalulation Procedure: Bilateral axillary wound closure Date of Evaluation: May 23, 2016 Time of Evaluation: 14:09 IV Fluids: 1.5L Blood Products: 0 Estimated Blood Loss: 100 Urinary Output: 0 Blood Pressure Systolic: 129 Blood Pressure Diastolic: 53 Pulse Rate: 82 Respiratory Rate: 16 O2 Sat by Pulse Oximetry: 97 Temperature (Fahrenheit): 97 Pain Score (1-10): 0 Nausea: No Vomiting: No Complications 0 Patient Status: awake, reacts, patent, none Hydration Status: adequate Drug: Ancef 2g Given Within 1 Hr of Incision: Yes Time Given: 10:15 ALIYA QUINONEZ M.D. May 23, 2016 10:40
[2016-05-23] MEDS ORDERED: Metoclopramide 10mg/2ml Inj IVP PRN (10:45)
[2016-05-23] MEDS ORDERED: DiphenhydrAMINE 50mg/ml Inj IVP PRN (10:45)
[2016-05-23] MEDS ORDERED: Labetalol 5mg/ml 20ml vial IV PRN (10:45)
[2016-05-23] MEDS ORDERED: Ketorolac 30mg Inj IV PRN (10:45)
[2016-05-23] MEDS ORDERED: LORazepam Inj 2mg/ml 1ml IV PRN (10:45)
[2016-05-23] MEDS ORDERED: Midazolam 2mg/2ml Inj IVP PRN (10:45)
[2016-05-23] MEDS ORDERED: fentaNYL 100 mcg/2 mL IV PRN (10:45)
[2016-05-23] MEDS ORDERED: Hydromorphone 0.5mg/0.5ml inj IVP PRN (10:45)
[2016-05-23] MEDS ORDERED: Rate Change PCA 1 Each MISC PRN (11:00)
--- NOTE | 2016-05-23 14:11 | General Progress Note ---
Assessment/Plan Problem List: (1) Abscess of axillary region Assessment & Plan: s/p I+D of bilateral axillae, POD#4 For OR today for stage 2 surgery Cont IV abx Pain control Supp care f/u blood cx f/u wound cultures ICD Codes: L02.419 - Cutaneous abscess of limb, unspecified SNOMED: [id number] Subjective Date patient seen: May 23, 2016 Time patient seen: 14:10 ROS Limited/Unobtainable: No Allergies: Coded Allergies: CEFACLOR (Verified Allergy, Unknown, 05/18/16) Subjective s/p I+D of bilateral axillae, POD#4, no chest pain or dyspnea, postop pain well controlled. Going for stage 2 surgery today Objective Last 24 Hour Vital Signs Date Time Temp Pulse Resp B/P Pulse Ox O2 Delivery O2 Flow Rate FiO2 05/23/16 14:07 82 16 97 05/23/16 08:00 98.2 98 19 121/69 100 Room Air 05/23/16 04:00 98.2 89 20 123/73 98 Room Air 05/23/16 00:00 98.6 99 18 125/70 93 Room Air 05/22/16 21:36 99.9 05/22/16 20:00 99.9 93 20 127/78 98 Room Air 05/22/16 15:57 99.0 87 18 132/67 97 Room Air Intake and Output 05/22/16 05/23/16 18:59 06:59 Intake Total 500 ml 240 ml Output Total 50 ml Balance 500 ml 190 ml Intake Oral 500 ml 240 ml Drainage Total 50 ml # Voids 3 2 Height (Feet): 5 Height (Inches): 6.00 Weight (Pounds): 196 NICHOLELUIS DE JESUSCHAPIN May 23, 2016 14:11
[2016-05-23] MEDS ORDERED: D5NS 1000ml IV ONE (14:17)
[2016-05-23] MEDS: PCA HYDROmorphone 1mg/ml 30 ML IV PRN (14:36)
[2016-05-23] MEDS: PCA shift volume MISC SCH ×2 (15:00→23:00)
--- NOTE | 2016-05-23 16:10 | Diagnostic Imaging Report ---
Indications: Needs long-term IV access Technique: Ultrasound confirms patent compressible left cephalic vein. Total sterile technique, including sterile probe cover and sterile gel, hat, mask,, sterile gown, large sterile drape, and preparation with 2% chlorhexidine utilized. Local anesthesia with 1% lidocaine. Under real-time ultrasound guidance, puncture vein using 21-gauge needle, documented and archived, passage 0.018 guidewire under direct fluoroscopy, which was used to determine appropriate catheter length, exchange for 5 [place] peel-away sheath. 5 [place] Bard dual-lumen power PICC cut to 41 cm. It was inserted through the peel-away sheath. Peel-away sheath and guidewire removed. Catheter fixed to the skin. Both catheter ports aspirated and flushed. Patient tolerated procedure well, without immediate complication. Digital radiograph documents satisfactory catheter tip position, at the cavoatrial junction. Total fluoroscopy time 0.4 minutes. Total dose area product 5.4 dGycm2 Impression: Successful placement of left PICC under sonographic and fluoroscopic guidance, as described above.
[2016-05-23] MEDS ORDERED: Zolpidem 5mg tab ORAL PRN (21:00)
--- NOTE | 2016-05-23 21:59 | Operative Note - Dictated ---
DATE OF OPERATION: 05/23/2016 PREOPERATIVE DIAGNOSES: 1. Bilateral open axillary wound. 2. Open right superior breast wound. POSTOPERATIVE DIAGNOSES: 1. Bilateral open axillary wound. 2. Open right superior breast wound. PROCEDURES: 1. Preparation of left axillary wound for flap closure. 2. Flap advancement closure of left axillary wound. 3. Preparation of right axillary wound for flap closure. 4. Flap readvancement for closure of right axillary wound. 5. Complex closure of right breast wound. SURGEON: Jefferson Black M.D. STATION MECHANIC: Danny Bettencourt M.D. ANESTHESIA: General. OPERATIVE TIME: Three hours. DRAINS: Included one size 15 RAJ in each axilla. DISPOSITION: Stable to the recovery room. EBL: 25 mL. INDICATIONS FOR SURGERY: This is a 36-year-old female and was postop day #4 from bilateral axillary debridements, an excision of infected tissue, as well as excision of infected right breast tissue, who has undergone wound VAC therapy and is now prepared for definitive flap closure of her wounds. At her first operation, she had elevation of flaps and at this operation, she will undergo flap advancement for closure of her wounds. She understands the risks and benefits of surgery and agrees to proceed. DETAILS OF THE OPERATION: The patient was brought to the operating room and laid supine on the operating room table. The bilateral axillary regions were prepped and draped in a sterile and usual fashion. We first began by re-elevating the flap that had been previously raised. This was a thoracodorsal artery flap on the left side. The flap was elevated and we noted that the donor site needed further mobilization for closure of the donor site and the wound bed was debrided and prepared for flap transfer. Hemostasis was achieved. Following pulse lavage irrigation, a 15 RAJ was placed in the flap that had been previously elevated. We then further mobilized with electrocautery to allow for transfer into the defect. The donor site was closed with #0 and 2-0 Vicryl sutures and the flap was then inset with #0 and 2-0 Vicryl sutures and the size of the left axillary defect was 100 cm2 and following completion of the flap transfer, a 2-0 Prolene sutures were used to close the skin. We then turned our attention to the contralateral side. The right axillary wound was prepared for flap transfer with debridement of the wound margins. The donor site was closed following irrigation and with pulse lavage and hemostasis. The donor site was closed with #0 and 2-0 Vicryl sutures and the thoracodorsal artery flap that had been previously raised was readvanced and mobilized into the defect and the axilla inset with #0 and 2-0 Vicryl sutures and 2-0 Prolene was used to close the skin. Following closure of the bilateral axillary wounds, the right breast wound was then debrided. Hemostasis was achieved and the wound was then closed in a complex closure fashion by using #0 and 2-0 Vicryl sutures and a running 3-0 Prolene was used to close the skin. This thus completed the bilateral axillary wound preparation for flap transfer and closure and closure of the right breast wound. The patient tolerated the procedure well and there were no complications. Jefferson Black M.D. DR: GRACE JOB#: [id number] CC: LETY
[2016-05-24] VITALS: BP 114/57
[2016-05-24 04:00] VITALS: BP 110/55
[2016-05-24] MEDS: D5NS 1,000 ML IV SCH ×2 (05:28→20:09)
[2016-05-24] MEDS: Clindamycin 600mg 50 ML IVPB SCH ×3 (05:29→21:58)
[2016-05-24] MEDS: PCA shift volume MISC SCH ×3 (07:11→23:07)
[2016-05-24] MEDS: Docusate 100mg cap ORAL SCH ×2 (08:28→17:38)
[2016-05-24] MEDS: Lactobacillus-GG tablet ORAL SCH ×2 (08:29→17:38)
[2016-05-24] MEDS: Heparin 5000 units/ml inj SUBQ SCH ×2 (08:38→20:13)
[2016-05-24 08:40] VITALS: BP 101/57
--- NOTE | 2016-05-24 08:59 | 48 Hour Post Anesthesia Eval ---
Post Anesthesia Evaluation Procedure: Bilateral axillary wound closure Date of Evaluation: May 24, 2016 Time of Evaluation: 09:40 Blood Pressure Systolic: 101 0: 57 Pulse Rate: 90 Respiratory Rate: 15 Temperature (Fahrenheit): 97.6 O2 Sat by Pulse Oximetry: 95 Airway: patent Nausea: No Vomiting: No Pain Intensity: 0 If pain is > 6 Comment: Patient using PUBLIC WORKS DIRECTOR appropriately. Hydration Status: adequate Cardiopulmonary Status: Stable Mental Status/LOC: patient returned to baseline Follow-up Care/Observations: As per surgery Post-Anesthesia Complications: No anesthetic complication Follow-up care needed: N/A TYRA ROCHA M.D. May 24, 2016 08:59
[2016-05-24] MEDS: PCA HYDROmorphone 1mg/ml 30 ML IV PRN (13:48)
--- NOTE | 2016-05-24 15:50 | General Progress Note ---
Progress Note Progress Note Pt seen and examined. POD# 1 from flap closure of axillary wounds. Doing well and pain is well controlled. Drains with minimal SS output. Plan to continue SILVERER and abx. Will take down dressings on . MD PABLO Ray AMIR May 24, 2016 15:50
[2016-05-24 16:00] VITALS: BP 102/51
--- NOTE | 2016-05-24 19:53 | General Progress Note ---
Assessment/Plan Problem List: (1) Abscess of axillary region Assessment & Plan: s/p I+D of bilateral axillae, POD#5 s/p stage 2 surgery POD#1 Cont IV abx Pain control Supp care f/u blood cx f/u wound cultures ICD Codes: L02.419 - Cutaneous abscess of limb, unspecified SNOMED: [id number] Subjective Date patient seen: May 24, 2016 Time patient seen: 13:30 Allergies: Coded Allergies: CEFACLOR (Verified Allergy, Unknown, 05/18/16) Subjective s/p I+D of bilateral axillae, POD#5, no chest pain or dyspnea, postop pain well controlled. s/p stage 2 surgery POD#1 Objective Last 24 Hour Vital Signs Date Time Temp Pulse Resp B/P Pulse Ox O2 Delivery O2 Flow Rate FiO2 05/24/16 16:00 19 05/24/16 16:00 99.1 98 20 102/51 94 Room Air 05/24/16 14:18 97.6 05/24/16 12:00 19 05/24/16 08:59 90 15 95 05/24/16 08:40 97.6 90 15 101/57 95 Nasal Cannula 05/24/16 08:00 19 05/24/16 04:00 98.4 91 20 110/55 98 Room Air 05/24/16 04:00 16 05/24/16 00:00 98.4 98 20 114/57 94 Room Air 05/24/16 00:00 14 05/23/16 20:26 98.1 106 19 118/72 95 Room Air 05/23/16 19:55 14 Intake and Output 05/23/16 05/24/16 19:00 07:00 Intake Total 1850 ml 960 ml Output Total 965 ml 437 ml Balance 885 ml 523 ml Intake Oral 360 ml IV Total 1850 ml 600 ml Output Urine Total 850 ml 400 ml Drainage Total 15 ml 37 ml Estimated Blood Loss 100 ml # Voids 1 1 Height (Feet): 5 Height (Inches): 6.00 Weight (Pounds): 196 Objective General: alert, cooperative, no distress, appears stated age Head: normocephalic, without obvious abnormality, atraumatic Eyes: conjunctivae/corneas clear. PERRL, EOM's intact Throat: lips, mucosa, and tongue normal. MMM Neck: supple, symmetrical, trachea midline, and no JVD Lungs: clear to auscultation bilaterally Heart: regular rate and rhythm, S1, S2 normal, no murmur, click, rub or gallop Abdomen: soft, non-tender, non-distended, bowel sounds normal; no masses or organomegaly Extremities: extremities normal, atraumatic, no cyanosis or edema Pulses: 2+ and symmetric Skin: skin color, texture, turgor normal; no rashes or lesions Neurologic: grossly normal, no focal deficits DEYA SHAH May 24, 2016 19:53
[2016-05-24 20:20] VITALS: BP 115/56
[2016-05-25] VITALS: BP 117/44
[2016-05-25 04:00] VITALS: BP 110/56
[2016-05-25] MEDS: Clindamycin 600mg 50 ML IVPB SCH ×3 (05:01→21:08)
[2016-05-25] MEDS: PCA shift volume MISC SCH ×3 (07:00→23:11)
[2016-05-25] MEDS ORDERED: Rate Change PCA 1 Each MISC PRN ×2 (07:00→17:15)
[2016-05-25 08:00] VITALS: BP 109/57
[2016-05-25] MEDS: Lactobacillus-GG tablet ORAL SCH ×2 (08:40→17:07)
[2016-05-25] MEDS: Docusate 100mg cap ORAL SCH ×2 (08:40→17:07)
[2016-05-25] MEDS: Heparin 5000 units/ml inj SUBQ SCH ×2 (08:43→21:14)
--- NOTE | 2016-05-25 09:40 | General Progress Note ---
Assessment/Plan Problem List: (1) Abscess of axillary region Assessment & Plan: s/p I+D of bilateral axillae, POD#6 s/p stage 2 surgery POD#2 Cont IV abx Pain control Supp care f/u blood cx f/u wound cultures ICD Codes: L02.419 - Cutaneous abscess of limb, unspecified SNOMED: [id number] Subjective Date patient seen: May 25, 2016 Time patient seen: 09:39 ROS Limited/Unobtainable: No Allergies: Coded Allergies: CEFACLOR (Verified Allergy, Unknown, 05/18/16) Subjective s/p I+D of bilateral axillae, POD#6, no chest pain or dyspnea, postop pain well controlled. s/p stage 2 surgery POD#2 Objective Last 24 Hour Vital Signs Date Time Temp Pulse Resp B/P Pulse Ox O2 Delivery O2 Flow Rate FiO2 05/25/16 08:00 17 05/25/16 08:00 98.4 95 19 109/57 97 Room Air 05/25/16 04:00 20 05/25/16 04:00 98.2 92 19 110/56 100 Room Air 05/25/16 00:00 99.3 98 20 117/44 95 Room Air 05/25/16 00:00 20 05/24/16 20:20 99.7 98 19 115/56 97 Room Air 05/24/16 20:07 20 05/24/16 16:00 19 05/24/16 16:00 99.1 98 20 102/51 94 Room Air 05/24/16 14:18 97.6 05/24/16 12:00 19 Intake and Output 05/24/16 05/25/16 19:00 07:00 Intake Total 900 ml 890 ml Output Total 606 ml 13 ml Balance 294 ml 877 ml Intake Oral 300 ml 440 ml IV Total 600 ml 450 ml Output Urine Total 600 ml Drainage Total 6 ml 13 ml # Voids 2 Height (Feet): 5 Height (Inches): 6.00 Weight (Pounds): 196 Objective General: alert, cooperative, no distress, appears stated age Head: normocephalic, without obvious abnormality, atraumatic Eyes: conjunctivae/corneas clear. PERRL, EOM's intact Throat: lips, mucosa, and tongue normal. MMM Neck: supple, symmetrical, trachea midline, and no JVD Lungs: clear to auscultation bilaterally Heart: regular rate and rhythm, S1, S2 normal, no murmur, click, rub or gallop Abdomen: soft, non-tender, non-distended, bowel sounds normal; no masses or organomegaly Extremities: extremities normal, atraumatic, no cyanosis or edema Pulses: 2+ and symmetric Skin: skin color, texture, turgor normal; no rashes or lesions Neurologic: grossly normal, no focal deficits DEYA SHAH May 25, 2016 09:39
[2016-05-25 11:52] VITALS: BP 113/62
[2016-05-25] MEDS: PCA HYDROmorphone 1mg/ml 30 ML IV PRN (13:37)
[2016-05-25 16:00] VITALS: BP 107/66
[2016-05-25] MEDS: D5NS 1,000 ML IV SCH (16:16)
[2016-05-25 20:00] VITALS: BP 108/68
[2016-05-26] MEDS: Clindamycin 600mg 50 ML IVPB SCH ×3 (05:09→21:14)
[2016-05-26] MEDS: PCA shift volume MISC SCH ×3 (07:09→23:00)
[2016-05-26 08:00] VITALS: BP_SYST 108; BP_SYST 112; BP_DIAS 63; BP_DIAS 68
[2016-05-26] MEDS: Lactobacillus-GG tablet ORAL SCH ×2 (09:02→18:24)
[2016-05-26] MEDS: Docusate 100mg cap ORAL SCH ×2 (09:02→18:24)
[2016-05-26] MEDS: D5NS 1,000 ML IV SCH (09:02)
[2016-05-26] MEDS: Heparin 5000 units/ml inj SUBQ SCH ×2 (09:07→21:20)
[2016-05-26 12:05] VITALS: BP 111/59
[2016-05-26] MEDS: PCA HYDROmorphone 1mg/ml 30 ML IV PRN (13:50)
[2016-05-26 16:00] VITALS: BP 137/72
--- NOTE | 2016-05-26 18:55 | General Progress Note ---
Assessment/Plan Problem List: (1) Abscess of axillary region Assessment & Plan: s/p I+D of bilateral axillae, POD#7 s/p stage 2 surgery POD#3 Cont IV abx Pain control Supp care f/u blood cx f/u wound cultures ICD Codes: L02.419 - Cutaneous abscess of limb, unspecified SNOMED: [id number] Subjective Date patient seen: May 26, 2016 Time patient seen: 18:55 ROS Limited/Unobtainable: No Allergies: Coded Allergies: CEFACLOR (Verified Allergy, Unknown, 05/18/16) Subjective s/p I+D of bilateral axillae, POD#7, no chest pain or dyspnea, postop pain well controlled. s/p stage 2 surgery POD#3 Objective Last 24 Hour Vital Signs Date Time Temp Pulse Resp B/P Pulse Ox O2 Delivery O2 Flow Rate FiO2 05/26/16 16:00 98.6 93 18 137/72 100 Room Air 05/26/16 16:00 18 05/26/16 14:20 97.3 05/26/16 12:05 97.3 82 20 111/59 96 Room Air 05/26/16 12:00 20 05/26/16 08:00 98.1 86 20 112/63 97 Room Air 05/26/16 08:00 20 05/26/16 04:00 19 05/26/16 00:00 19 05/25/16 20:00 19 05/25/16 20:00 98.6 95 17 108/68 97 Room Air Intake and Output 05/25/16 05/26/16 19:00 07:00 Intake Total 960 ml 860 ml Output Total 4 ml 4 ml Balance 956 ml 856 ml Intake Oral 360 ml 360 ml IV Total 600 ml 500 ml Drainage Total 4 ml 4 ml # Voids 3 6 Height (Feet): 5 Height (Inches): 6.00 Weight (Pounds): 196 Objective General: alert, cooperative, no distress, appears stated age Head: normocephalic, without obvious abnormality, atraumatic Eyes: conjunctivae/corneas clear. PERRL, EOM's intact Throat: lips, mucosa, and tongue normal. MMM Neck: supple, symmetrical, trachea midline, and no JVD Lungs: clear to auscultation bilaterally Heart: regular rate and rhythm, S1, S2 normal, no murmur, click, rub or gallop Abdomen: soft, non-tender, non-distended, bowel sounds normal; no masses or organomegaly Extremities: extremities normal, atraumatic, no cyanosis or edema Pulses: 2+ and symmetric Skin: skin color, texture, turgor normal; no rashes or lesions Neurologic: grossly normal, no focal deficits DEYA SHAH May 26, 2016 18:55
[2016-05-26 20:00] VITALS: BP 119/67
[2016-05-27] MEDS: Clindamycin 600mg 50 ML IVPB SCH ×3 (05:19→21:17)
[2016-05-27] MEDS: PCA shift volume MISC SCH ×4 (07:00→23:00)
[2016-05-27 08:00] VITALS: BP 119/70
[2016-05-27] MEDS: D5NS 1,000 ML IV SCH (08:06)
--- NOTE | 2016-05-27 08:59 | General Progress Note ---
Progress Note Progress Note Pt seen and examined. POD # 4 from closure of axillary wounds. Doing well and pain is well controlled. Will re-examined flaps in AM. 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 ANAY Yarbrough MD May 27, 2016 08:59
[2016-05-27] MEDS: Lactobacillus-GG tablet ORAL SCH ×2 (09:14→17:09)
[2016-05-27] MEDS: Docusate 100mg cap ORAL SCH ×2 (09:14→17:09)
[2016-05-27] MEDS: Heparin 5000 units/ml inj SUBQ SCH ×2 (09:20→21:21)
[2016-05-27 12:00] VITALS: BP 112/65
[2016-05-27] MEDS ORDERED: Rate Change PCA 1 Each MISC PRN (13:00)
[2016-05-27] MEDS: PCA HYDROmorphone 1mg/ml 30 ML IV PRN (13:39)
--- NOTE | 2016-05-27 13:42 | Cardiology Report ---
APPROVED REPORT EKG Measurement Heart [id number] Normal sinus rhythm Left axis deviation Minimal voltage criteria for LVH, may be normal variant Abnormal ECG
--- NOTE | 2016-05-27 14:45 | General Progress Note ---
Assessment/Plan Problem List: (1) Abscess of axillary region Assessment & Plan: s/p I+D of bilateral axillae, POD#8 s/p stage 2 surgery POD#4 Cont IV abx Pain control Supp care f/u blood cx f/u wound cultures ICD Codes: L02.419 - Cutaneous abscess of limb, unspecified SNOMED: [id number] Subjective Date patient seen: May 27, 2016 Time patient seen: 14:45 ROS Limited/Unobtainable: No Allergies: Coded Allergies: CEFACLOR (Verified Allergy, Unknown, 05/18/16) Subjective s/p I+D of bilateral axillae, POD#8, no chest pain or dyspnea, postop pain well controlled. s/p stage 2 surgery POD#4 Objective Last 24 Hour Vital Signs Date Time Temp Pulse Resp B/P Pulse Ox O2 Delivery O2 Flow Rate FiO2 05/27/16 12:00 98.6 88 19 112/65 99 Room Air 05/27/16 12:00 17 05/27/16 08:00 18 05/27/16 08:00 98.2 88 19 119/70 97 Room Air 05/27/16 04:00 16 05/27/16 00:00 16 05/26/16 20:00 18 05/26/16 20:00 99.0 103 18 119/67 97 Room Air 05/26/16 16:00 98.6 93 18 137/72 100 Room Air 05/26/16 16:00 18 Intake and Output 05/26/16 05/27/16 19:00 07:00 Intake Total 750 ml 410 ml Output Total 0 ml 5 ml Balance 750 ml 405 ml Intake Oral 450 ml 360 ml IV Total 300 ml 50 ml Drainage Total 0 ml 5 ml # Voids 3 7 Height (Feet): 5 Height (Inches): 6.00 Weight (Pounds): 196 Objective General: alert, cooperative, no distress, appears stated age Head: normocephalic, without obvious abnormality, atraumatic Eyes: conjunctivae/corneas clear. PERRL, EOM's intact Throat: lips, mucosa, and tongue normal. MMM Neck: supple, symmetrical, trachea midline, and no JVD Lungs: clear to auscultation bilaterally Heart: regular rate and rhythm, S1, S2 normal, no murmur, click, rub or gallop Abdomen: soft, non-tender, non-distended, bowel sounds normal; no masses or organomegaly Extremities: extremities normal, atraumatic, no cyanosis or edema Pulses: 2+ and symmetric Skin: skin color, texture, turgor normal; no rashes or lesions Neurologic: grossly normal, no focal deficits DEYA SHAH May 27, 2016 14:45
[2016-05-27] MEDS ORDERED: PCA shift volume MISC SCH (15:00)
[2016-05-27] MEDS ORDERED: Tubing IV Secondary IV ONE (15:08)
[2016-05-27] MEDS ORDERED: D5NS 1000ml IV ONE (15:08)
[2016-05-27 16:00] VITALS: BP 124/68
[2016-05-27 20:00] VITALS: BP 126/68
[2016-05-28] MEDS: D5NS 1,000 ML IV SCH ×2 (02:40→21:41)
[2016-05-28] MEDS: Clindamycin 600mg 50 ML IVPB SCH ×3 (06:08→21:34)
[2016-05-28] MEDS: PCA shift volume MISC SCH ×3 (07:00→23:00)
[2016-05-28 08:00] VITALS: BP 118/70
[2016-05-28] MEDS: Docusate 100mg cap ORAL SCH ×2 (09:25→17:39)
[2016-05-28] MEDS: Lactobacillus-GG tablet ORAL SCH ×2 (09:26→17:39)
[2016-05-28] MEDS: Heparin 5000 units/ml inj SUBQ SCH ×2 (09:31→21:36)
--- NOTE | 2016-05-28 10:38 | General Progress Note ---
Progress Note Progress Note Pt seen and examined. POD # 5 and doing well. Flaps remain viable. Dressings changed. Continue IV abx and pain meds. ANAY Yarbrough MD May 28, 2016 10:38
[2016-05-28 12:00] VITALS: BP 122/80
[2016-05-28] MEDS: PCA HYDROmorphone 1mg/ml 30 ML IV PRN (13:27)
[2016-05-28] MEDS ORDERED: D5NS 1000ml IV ONE (13:55)
--- NOTE | 2016-05-28 14:09 | General Progress Note ---
Assessment/Plan Problem List: (1) Abscess of axillary region Assessment & Plan: s/p I+D of bilateral axillae, POD#9 s/p stage 2 surgery POD#5 Cont IV abx Pain control Supp care f/u blood cx f/u wound cultures ICD Codes: L02.419 - Cutaneous abscess of limb, unspecified SNOMED: [id number] Subjective Date patient seen: May 28, 2016 Time patient seen: 14:08 ROS Limited/Unobtainable: No Allergies: Coded Allergies: CEFACLOR (Verified Allergy, Unknown, 05/18/16) Subjective s/p I+D of bilateral axillae, POD#9, no chest pain or dyspnea, postop pain well controlled. s/p stage 2 surgery POD#5 Objective Last 24 Hour Vital Signs Date Time Temp Pulse Resp B/P Pulse Ox O2 Delivery O2 Flow Rate FiO2 05/28/16 12:00 98.4 95 17 122/80 95 Room Air 05/28/16 12:00 18 05/28/16 08:00 98.2 88 19 118/70 96 Room Air 05/28/16 08:00 18 05/28/16 04:00 18 05/28/16 00:00 18 05/27/16 20:00 17 05/27/16 20:00 99.1 95 18 126/68 100 Room Air 05/27/16 16:00 100.0 98 18 124/68 94 Room Air 05/27/16 16:00 17 Intake and Output 05/27/16 05/28/16 19:00 07:00 Intake Total 980 ml 440 ml Output Total 2 ml 12 ml Balance 978 ml 428 ml Intake Oral 480 ml 240 ml IV Total 500 ml 200 ml Drainage Total 2 ml 12 ml # Voids 6 # Bowel Movements 2 2 Height (Feet): 5 Height (Inches): 6.00 Weight (Pounds): 196 Objective General: alert, cooperative, no distress, appears stated age Head: normocephalic, without obvious abnormality, atraumatic Eyes: conjunctivae/corneas clear. PERRL, EOM's intact Throat: lips, mucosa, and tongue normal. MMM Neck: supple, symmetrical, trachea midline, and no JVD Lungs: clear to auscultation bilaterally Heart: regular rate and rhythm, S1, S2 normal, no murmur, click, rub or gallop Abdomen: soft, non-tender, non-distended, bowel sounds normal; no masses or organomegaly Extremities: extremities normal, atraumatic, no cyanosis or edema Pulses: 2+ and symmetric Skin: skin color, texture, turgor normal; no rashes or lesions Neurologic: grossly normal, no focal deficits DEYA SHAH May 28, 2016 14:09
[2016-05-28 16:00] VITALS: BP 102/60
[2016-05-28 20:00] VITALS: BP 111/68
[2016-05-29 04:00] VITALS: BP_SYST 111; BP_SYST 117; BP_DIAS 67; BP_DIAS 68
[2016-05-29] MEDS: Clindamycin 600mg 50 ML IVPB SCH ×3 (06:44→21:25)
[2016-05-29] MEDS: PCA shift volume MISC SCH (06:51)
[2016-05-29 08:12] VITALS: BP 115/68
[2016-05-29] MEDS: Lactobacillus-GG tablet ORAL SCH ×2 (08:12→17:15)
[2016-05-29] MEDS: Docusate 100mg cap ORAL SCH ×2 (08:12→17:15)
[2016-05-29] MEDS: Heparin 5000 units/ml inj SUBQ SCH ×2 (08:15→21:26)
[2016-05-29 12:59] VITALS: BP 107/42
--- NOTE | 2016-05-29 13:19 | General Progress Note ---
Assessment/Plan Problem List: (1) Abscess of axillary region Assessment & Plan: s/p I+D of bilateral axillae, POD#10 s/p stage 2 surgery POD#6 Cont IV abx Pain control Supp care f/u blood cx f/u wound cultures ICD Codes: L02.419 - Cutaneous abscess of limb, unspecified SNOMED: [id number] Subjective Date patient seen: May 29, 2016 Time patient seen: 13:18 ROS Limited/Unobtainable: No Allergies: Coded Allergies: CEFACLOR (Verified Allergy, Unknown, 05/18/16) Subjective s/p I+D of bilateral axillae, POD#10, no chest pain or dyspnea, postop pain well controlled. s/p stage 2 surgery POD#6 Objective Last 24 Hour Vital Signs Date Time Temp Pulse Resp B/P Pulse Ox O2 Delivery O2 Flow Rate FiO2 05/29/16 12:59 97.0 68 15 107/42 99 Room Air 05/29/16 08:12 98.2 87 14 115/68 96 Room Air 05/29/16 08:00 18 05/29/16 04:00 97.9 94 21 117/67 98 Room Air 05/29/16 04:00 20 05/29/16 04:00 99.1 95 17 111/68 93 Room Air 05/28/16 23:00 18 05/28/16 20:00 99.1 95 17 111/68 93 Room Air 05/28/16 16:00 98.6 91 17 102/60 98 Intake and Output 05/28/16 05/29/16 19:00 07:00 Intake Total 730 ml 890 ml Output Total 2 ml 15 ml Balance 728 ml 875 ml Intake Oral 480 ml 240 ml IV Total 250 ml 650 ml Drainage Total 2 ml 15 ml # Voids 2 6 Height (Feet): 5 Height (Inches): 6.00 Weight (Pounds): 196 Objective General: alert, cooperative, no distress, appears stated age Head: normocephalic, without obvious abnormality, atraumatic Eyes: conjunctivae/corneas clear. PERRL, EOM's intact Throat: lips, mucosa, and tongue normal. MMM Neck: supple, symmetrical, trachea midline, and no JVD Lungs: clear to auscultation bilaterally Heart: regular rate and rhythm, S1, S2 normal, no murmur, click, rub or gallop Abdomen: soft, non-tender, non-distended, bowel sounds normal; no masses or organomegaly Extremities: extremities normal, atraumatic, no cyanosis or edema Pulses: 2+ and symmetric Skin: skin color, texture, turgor normal; no rashes or lesions Neurologic: grossly normal, no focal deficits DEYA SHAH May 29, 2016 13:19
[2016-05-29 16:14] VITALS: BP 115/67
[2016-05-29] MEDS: D5NS 1,000 ML IV SCH (17:24)
[2016-05-29 20:38] VITALS: BP 115/83
[2016-05-30] MEDS: Clindamycin 600mg 50 ML IVPB SCH ×3 (05:43→21:07)
[2016-05-30 08:00] VITALS: BP 109/64
[2016-05-30] MEDS: Docusate 100mg cap ORAL SCH ×2 (09:26→18:00)
[2016-05-30] MEDS: Lactobacillus-GG tablet ORAL SCH ×2 (09:26→18:00)
[2016-05-30] MEDS: Heparin 5000 units/ml inj SUBQ SCH ×2 (09:36→21:09)
[2016-05-30 11:34] LABS: BASOPHILS % (AUTO) 0.7 % (0.0-2.0); EOSINOPHILS % (AUTO) 2.3 % (0.0-3.0); LYMPHOCYTES % (AUTO) 13.1 % (20.0-45.0); MEAN CORPUSCULAR HEMOGLOBIN 26.6 PG (27.0-31.0); MEAN CORPUSCULAR HGB CONC 32.1 G/DL (32.0-36.0); MEAN CORPUSCULAR VOLUME 83 FL (80-99); MEAN PLATELET VOLUME 4.4 FL (6.5-10.1); MONOCYTES % (AUTO) 12.7 % (1.0-10.0); PLATELET COUNT 475 K/UL (150-450); RED BLOOD COUNT 4.16 M/UL (4.20-5.40); RED CELL DISTRIBUTION WIDTH 11.8 % (11.6-14.8); WHITE BLOOD COUNT 10.9 K/UL (4.8-10.8)
[2016-05-30 12:00] VITALS: BP 130/66
[2016-05-30] MEDS: D5NS 1,000 ML IV SCH (14:13)
--- NOTE | 2016-05-30 14:39 | General Progress Note ---
Assessment/Plan Problem List: (1) Abscess of axillary region Assessment & Plan: s/p I+D of bilateral axillae, POD#11 s/p stage 2 surgery POD#7 Cont IV abx Pain control Supp care f/u blood cx f/u wound cultures ICD Codes: L02.419 - Cutaneous abscess of limb, unspecified SNOMED: [id number] Subjective Date patient seen: May 30, 2016 Time patient seen: 14:39 Allergies: Coded Allergies: CEFACLOR (Verified Allergy, Unknown, 05/18/16) Subjective s/p I+D of bilateral axillae, POD#11, no chest pain or dyspnea, postop pain well controlled. s/p stage 2 surgery POD#7 Objective Last 24 Hour Vital Signs Date Time Temp Pulse Resp B/P Pulse Ox O2 Delivery O2 Flow Rate FiO2 05/30/16 12:00 96.1 86 18 130/66 96 Room Air 05/30/16 08:00 97.0 80 18 109/64 97 Room Air 05/29/16 20:38 98.2 96 18 115/83 98 Room Air 05/29/16 16:14 97.9 89 19 115/67 96 Room Air Intake and Output 05/29/16 05/30/16 19:00 07:00 Intake Total 1500 ml 1070 ml Output Total 400 ml 7 ml Balance 1100 ml 1063 ml Intake Oral 1000 ml 520 ml IV Total 500 ml 550 ml Output Urine Total 400 ml Drainage Total 7 ml # Voids 3 Laboratory Tests 05/30/16 11:15: White Blood Count 10.9H, Red Blood Count 4.16L, Hemoglobin 11.1L, Hematocrit 34.5L, Mean Corpuscular Volume 83, Mean Corpuscular Hemoglobin 26.6L, Mean Corpuscular Hemoglobin Concent 32.1, Red Cell Distribution Width 11.8, Platelet Count 475H, Mean Platelet Volume 4.4L, Neutrophils (%) (Auto) 71.0, Lymphocytes (%) (Auto) 13.1L, Monocytes (%) (Auto) 12.7H, Eosinophils (%) (Auto) 2.3, Basophils (%) (Auto) 0.7 Height (Feet): 5 Height (Inches): 6.00 Weight (Pounds): 196 Objective General: alert, cooperative, no distress, appears stated age Head: normocephalic, without obvious abnormality, atraumatic Eyes: conjunctivae/corneas clear. PERRL, EOM's intact Throat: lips, mucosa, and tongue normal. MMM Neck: supple, symmetrical, trachea midline, and no JVD Lungs: clear to auscultation bilaterally Heart: regular rate and rhythm, S1, S2 normal, no murmur, click, rub or gallop Abdomen: soft, non-tender, non-distended, bowel sounds normal; no masses or organomegaly Extremities: extremities normal, atraumatic, no cyanosis or edema Pulses: 2+ and symmetric Skin: skin color, texture, turgor normal; no rashes or lesions Neurologic: grossly normal, no focal deficits DEYA SHAH May 30, 2016 14:39
[2016-05-30 16:01] VITALS: BP 113/59
[2016-05-30 20:00] VITALS: BP 116/63
[2016-05-31 08:08] VITALS: BP 120/76
[2016-05-31] MEDS: Docusate 100mg cap ORAL SCH ×2 (08:14→17:58)
[2016-05-31] MEDS: Lactobacillus-GG tablet ORAL SCH ×2 (08:14→17:58)
[2016-05-31] MEDS: Heparin 5000 units/ml inj SUBQ SCH (08:18)
[2016-05-31 11:59] VITALS: BP 109/61
[2016-05-31 15:31] VITALS: BP 127/72
[2016-05-31 15:36] VITALS: BP 138/76
[2016-05-31] MEDS ORDERED: Tubing IV Secondary IV ONE (15:56)
[2016-05-31] MEDS ORDERED: D5NS 1000ml IV ONE (15:56)
[2016-05-31 16:26] LABS: BASOPHILS % (AUTO) 0.6 % (0.0-2.0); EOSINOPHILS % (AUTO) 2.3 % (0.0-3.0); LYMPHOCYTES % (AUTO) 15.3 % (20.0-45.0); MEAN CORPUSCULAR HEMOGLOBIN 26.8 PG (27.0-31.0); MEAN CORPUSCULAR HGB CONC 32.4 G/DL (32.0-36.0); MEAN CORPUSCULAR VOLUME 83 FL (80-99); MEAN PLATELET VOLUME 4.5 FL (6.5-10.1); MONOCYTES % (AUTO) 8.2 % (1.0-10.0); NEUTROPHILS % (AUTO) 73.7 % (45.0-75.0); PLATELET COUNT 543 K/UL (150-450); RED CELL DISTRIBUTION WIDTH 11.9 % (11.6-14.8); WHITE BLOOD COUNT 12.9 K/UL (4.8-10.8)
[2016-05-31] MEDS ORDERED: Heparin 25,000u/D5W 500ml 500 ML IV SCH (16:30)
[2016-05-31] MEDS ORDERED: Heparin 5000 units/ml inj IV ONE ×2 (16:30→23:45)
--- NOTE | 2016-05-31 17:51 | General Progress Note ---
Assessment/Plan Problem List: (1) Abscess of axillary region Assessment & Plan: s/p I+D of bilateral axillae, POD#12 s/p stage 2 surgery POD#8 Cont IV abx Pain control Supp care f/u blood cx f/u wound cultures ICD Codes: L02.419 - Cutaneous abscess of limb, unspecified SNOMED: [id number] (2) Acute deep vein thrombosis (DVT) of brachial vein of left upper extremity Assessment & Plan: Start heparin gtt remove PICC line in LUE If IV line blows, pt can get lovenox 1mg/kg subq bid for anticoagulation, d/w RN ICD Codes: I82.622 - Acute embolism and thrombosis of deep veins of left upper extremity SNOMED: [id number] Subjective Date patient seen: May 31, 2016 Time patient seen: 17:49 ROS Limited/Unobtainable: No Allergies: Coded Allergies: CEFACLOR (Verified Allergy, Unknown, 05/18/16) Subjective s/p I+D of bilateral axillae, POD#12, no chest pain or dyspnea, postop pain well controlled. s/p stage 2 surgery POD#8. Duplex ultrasound done shows acute DVT of L brachial vein, done due to LUE swelling/pain Objective Last 24 Hour Vital Signs Date Time Temp Pulse Resp B/P Pulse Ox O2 Delivery O2 Flow Rate FiO2 05/31/16 15:36 88 22 138/76 100 Room Air 05/31/16 15:31 90 20 127/72 99 Room Air 05/31/16 11:59 97.9 85 20 109/61 99 Room Air 05/31/16 11:56 97.9 05/31/16 08:08 97.7 82 21 120/76 97 Room Air 05/30/16 20:00 98.1 93 20 116/63 98 Room Air Intake and Output 05/30/16 05/31/16 19:00 07:00 Intake Total 1070 ml 600 ml Output Total 17 ml Balance 1070 ml 583 ml Intake Oral 720 ml 600 ml IV Total 350 ml Drainage Total 17 ml # Voids 4 3 # Bowel Movements 4 2 Laboratory Tests 05/31/16 16:20: White Blood Count 12.9H, Red Blood Count 4.40, Hemoglobin 11.8L, Hematocrit 36.5L, Mean Corpuscular Volume 83, Mean Corpuscular Hemoglobin 26.8L, Mean Corpuscular Hemoglobin Concent 32.4, Red Cell Distribution Width 11.9, Platelet Count 543H, Mean Platelet Volume 4.5L, Neutrophils (%) (Auto) 73.7, Lymphocytes (%) (Auto) 15.3L, Monocytes (%) (Auto) 8.2, Eosinophils (%) (Auto) 2.3, Basophils (%) (Auto) 0.6, Activated Partial Thromboplast Time 28 Height (Feet): 5 Height (Inches): 6.00 Weight (Pounds): 196 Objective General: alert, cooperative, no distress, appears stated age Head: normocephalic, without obvious abnormality, atraumatic Eyes: conjunctivae/corneas clear. PERRL, EOM's intact Throat: lips, mucosa, and tongue normal. MMM Neck: supple, symmetrical, trachea midline, and no JVD Lungs: clear to auscultation bilaterally Heart: regular rate and rhythm, S1, S2 normal, no murmur, click, rub or gallop Abdomen: soft, non-tender, non-distended, bowel sounds normal; no masses or organomegaly Extremities: extremities normal, atraumatic, no cyanosis or edema Pulses: 2+ and symmetric Skin: skin color, texture, turgor normal; no rashes or lesions Neurologic: grossly normal, no focal deficits DEYA SHAH May 31, 2016 17:51
[2016-05-31 20:00] VITALS: BP 109/66
[2016-05-31] MEDS: Clindamycin 150mg cap ORAL SCH (20:17)
[2016-06-01] MEDS: Heparin 25,000u/D5W 500ml 500 ML IV SCH ×3 (00:20→21:21)
[2016-06-01] MEDS: Clindamycin 150mg cap ORAL SCH ×3 (05:42→20:51)
[2016-06-01 08:00] VITALS: BP 120/67
[2016-06-01] MEDS: Docusate 100mg cap ORAL SCH ×2 (08:36→16:56)
[2016-06-01] MEDS: Lactobacillus-GG tablet ORAL SCH ×2 (08:36→16:56)
--- NOTE | 2016-06-01 10:57 | General Progress Note ---
Progress Note Progress Note Pt seen and examined. DVT noted on L UE JAYSON. PICC line removed yesterday and pt started on IV Heparin. The left axillary wound/flap is healing well. Right flap distal tip has some ischemic changes. Will apply wet to dry dressings to the open area on the R side and re-assess wound. If wound appears worse in 48 hours will consider operative debridement of the area. Continue IV abx and pain meds. ANAY Yarbrough MD Jun 01, 2016 10:57
--- NOTE | 2016-06-01 11:47 | General Progress Note ---
Assessment/Plan Problem List: (1) Abscess of axillary region Assessment & Plan: s/p I+D of bilateral axillae, POD#13 s/p stage 2 surgery POD#9 Cont IV abx Pain control Supp care f/u blood cx f/u wound cultures ICD Codes: L02.419 - Cutaneous abscess of limb, unspecified SNOMED: [id number] (2) Acute deep vein thrombosis (DVT) of brachial vein of left upper extremity Assessment & Plan: Cont heparin gtt s/p removal of PICC line in LUE If IV line blows, pt can get lovenox 1mg/kg subq bid for anticoagulation, d/w RN ICD Codes: I82.622 - Acute embolism and thrombosis of deep veins of left upper extremity SNOMED: [id number] Subjective Date patient seen: Jun 01, 2016 Time patient seen: 11:46 ROS Limited/Unobtainable: No Allergies: Coded Allergies: CEFACLOR (Verified Allergy, Unknown, 05/18/16) Subjective s/p I+D of bilateral axillae, POD#13, no chest pain or dyspnea, postop pain well controlled. s/p stage 2 surgery POD#9. Reports improved LUE swelling/pain Objective Last 24 Hour Vital Signs Date Time Temp Pulse Resp B/P Pulse Ox O2 Delivery O2 Flow Rate FiO2 06/01/16 10:39 97.5 06/01/16 08:00 97.5 87 19 120/67 85 Room Air 05/31/16 20:00 98.6 91 18 109/66 98 Room Air 05/31/16 15:36 88 22 138/76 100 Room Air 05/31/16 15:31 90 20 127/72 99 Room Air 05/31/16 11:59 97.9 85 20 109/61 99 Room Air 05/31/16 11:56 97.9 Intake and Output 05/31/16 06/01/16 19:00 07:00 Intake Total 544 ml 647.12 ml Output Total 0 ml 0 ml Balance 544 ml 647.12 ml Intake Oral 480 ml 480 ml IV Total 64 ml 167.12 ml Drainage Total 0 ml 0 ml # Voids 2 3 # Bowel Movements 4 2 Laboratory Tests 05/31/16 16:20: White Blood Count 12.9H, Red Blood Count 4.40, Hemoglobin 11.8L, Hematocrit 36.5L, Mean Corpuscular Volume 83, Mean Corpuscular Hemoglobin 26.8L, Mean Corpuscular Hemoglobin Concent 32.4, Red Cell Distribution Width 11.9, Platelet Count 543H, Mean Platelet Volume 4.5L, Neutrophils (%) (Auto) 73.7, Lymphocytes (%) (Auto) 15.3L, Monocytes (%) (Auto) 8.2, Eosinophils (%) (Auto) 2.3, Basophils (%) (Auto) 0.6, Activated Partial Thromboplast Time 28 05/31/16 23:14: Activated Partial Thromboplast Time 28 06/01/16 08:10: Activated Partial Thromboplast Time 81H Height (Feet): 5 Height (Inches): 6.00 Weight (Pounds): 196 Objective General: alert, cooperative, no distress, appears stated age Head: normocephalic, without obvious abnormality, atraumatic Eyes: conjunctivae/corneas clear. PERRL, EOM's intact Throat: lips, mucosa, and tongue normal. MMM Neck: supple, symmetrical, trachea midline, and no JVD Lungs: clear to auscultation bilaterally Heart: regular rate and rhythm, S1, S2 normal, no murmur, click, rub or gallop Abdomen: soft, non-tender, non-distended, bowel sounds normal; no masses or organomegaly Extremities: extremities normal, atraumatic, no cyanosis or edema, +LUE edema, slightly tender to touch Pulses: 2+ and symmetric Skin: skin color, texture, turgor normal; no rashes or lesions Neurologic: grossly normal, no focal deficits DEYA SHAH Jun 01, 2016 11:47
[2016-06-01 12:00] VITALS: BP 131/71
[2016-06-01] MEDS ORDERED: Neosporin Oint 15gm TOPIC PRN (12:00)
[2016-06-01 16:00] VITALS: BP 107/63
[2016-06-01 20:00] VITALS: BP 109/72
[2016-06-02] MEDS: Clindamycin 150mg cap ORAL SCH ×3 (05:49→22:13)
[2016-06-02] MEDS: Docusate 100mg cap ORAL SCH ×2 (07:37→17:26)
[2016-06-02] MEDS: Lactobacillus-GG tablet ORAL SCH ×2 (07:37→17:26)
[2016-06-02 07:45] VITALS: BP 123/67
[2016-06-02] MEDS: Heparin 25,000u/D5W 500ml 500 ML IV SCH (11:15)
[2016-06-02 12:00] VITALS: BP 109/65
--- NOTE | 2016-06-02 12:04 | General Progress Note ---
Assessment/Plan Problem List: (1) Abscess of axillary region Assessment & Plan: s/p I+D of bilateral axillae, POD#14 s/p stage 2 surgery POD#10 Cont IV abx Pain control Supp care f/u blood cx f/u wound cultures ICD Codes: L02.419 - Cutaneous abscess of limb, unspecified SNOMED: 44440101 (2) Acute deep vein thrombosis (DVT) of brachial vein of left upper extremity Assessment & Plan: Cont heparin gtt s/p removal of PICC line in LUE If IV line blows, pt can get lovenox 1mg/kg subq bid for anticoagulation, d/w RN ICD Codes: I82.622 - Acute embolism and thrombosis of deep veins of left upper extremity SNOMED: 101018056018045 Subjective Date patient seen: Jun 02, 2016 Time patient seen: 12:03 ROS Limited/Unobtainable: No Allergies: Coded Allergies: CEFACLOR (Verified Allergy, Unknown, 05/18/16) Subjective s/p I+D of bilateral axillae, POD#14, no chest pain or dyspnea, postop pain well controlled. s/p stage 2 surgery POD#10. Reports improved LUE swelling/pain Objective Last 24 Hour Vital Signs Date Time Temp Pulse Resp B/P Pulse Ox O2 Delivery O2 Flow Rate FiO2 06/02/16 11:47 97.2 06/02/16 07:45 97.2 82 20 123/67 95 Room Air 06/01/16 21:21 97.5 06/01/16 20:00 98.2 91 17 109/72 91 Room Air 06/01/16 16:00 98.2 85 17 107/63 99 Room Air Intake and Output 06/01/16 06/02/16 19:00 07:00 Intake Total 993.84 ml 633.84 ml Output Total 0 ml 0 ml Balance 993.84 ml 633.84 ml Intake Oral 720 ml 360 ml IV Total 273.84 ml 273.84 ml Drainage Total 0 ml 0 ml # Voids 4 7 Laboratory Tests 06/02/16 03:50: Activated Partial Thromboplast Time 72H Height (Feet): 5 Height (Inches): 6.00 Weight (Pounds): 196 Objective General: alert, cooperative, no distress, appears stated age Head: normocephalic, without obvious abnormality, atraumatic Eyes: conjunctivae/corneas clear. PERRL, EOM's intact Throat: lips, mucosa, and tongue normal. MMM Neck: supple, symmetrical, trachea midline, and no JVD Lungs: clear to auscultation bilaterally Heart: regular rate and rhythm, S1, S2 normal, no murmur, click, rub or gallop Abdomen: soft, non-tender, non-distended, bowel sounds normal; no masses or organomegaly Extremities: extremities normal, atraumatic, no cyanosis or edema, +LUE edema, slightly tender to touch Pulses: 2+ and symmetric Skin: skin color, texture, turgor normal; no rashes or lesions Neurologic: grossly normal, no focal deficits DEYA SHAH Jun 02, 2016 12:04
--- NOTE | 2016-06-02 12:13 | Diagnostic Imaging Report ---
APPROVED REPORT CPT Code: 77672 Present Symptoms Comments: Left upper arm swelling and pain Hx of a PICC line 2D Evaluation LEFT UPPER EXTREMITY: Imaging revealed acute thrombus in the proximal to mid segment of brachial vein. Imaging also revealed patency of the internal jugular, subclavian, proximal axillary and distal brachial veins. The cephalic vein (PICC line) was also thrombosis at the antecubital fossa to the upper arm level. The basilic vein was within normal limits. The axillary vein (under arm) was not imaged, due to bandages. CELSO Acevedo was notified of abnormal results at 13:20 hours.
[2016-06-02 16:21] VITALS: BP 109/63
[2016-06-02 20:00] VITALS: BP 105/66
[2016-06-03] VITALS: BP 109/64
[2016-06-03] MEDS: Heparin 25,000u/D5W 500ml 500 ML IV SCH (00:19)
[2016-06-03 04:00] VITALS: BP 121/65
[2016-06-03] MEDS: Clindamycin 150mg cap ORAL SCH ×3 (05:29→21:59)
[2016-06-03 08:00] VITALS: BP 99/64
[2016-06-03] MEDS: Docusate 100mg cap ORAL SCH ×2 (09:21→17:34)
[2016-06-03] MEDS: Lactobacillus-GG tablet ORAL SCH ×2 (09:21→17:34)
--- NOTE | 2016-06-03 11:07 | General Progress Note ---
Assessment/Plan Problem List: (1) Abscess of axillary region Assessment & Plan: s/p I+D of bilateral axillae, POD#15 s/p stage 2 surgery POD#11 Cont IV abx Pain control Supp care f/u blood cx f/u wound cultures ICD Codes: L02.419 - Cutaneous abscess of limb, unspecified SNOMED: 38821558 (2) Acute deep vein thrombosis (DVT) of brachial vein of left upper extremity Assessment & Plan: DC heparin gtt start xarelto 15mg bid for 3 weeks, then 20mg daily s/p removal of PICC line in LUE ICD Codes: I82.622 - Acute embolism and thrombosis of deep veins of left upper extremity SNOMED: 194632850140267 Subjective Date patient seen: Jun 03, 2016 Time patient seen: 11:06 ROS Limited/Unobtainable: No Allergies: Coded Allergies: CEFACLOR (Verified Allergy, Unknown, 05/18/16) Subjective s/p I+D of bilateral axillae, POD#15, no chest pain or dyspnea, postop pain well controlled. s/p stage 2 surgery POD#11. Reports improved LUE swelling/pain Objective Last 24 Hour Vital Signs Date Time Temp Pulse Resp B/P Pulse Ox O2 Delivery O2 Flow Rate FiO2 06/03/16 10:24 98.2 06/03/16 08:00 98.2 83 18 99/64 95 Room Air 06/03/16 04:00 97.5 86 18 121/65 94 Room Air 06/03/16 00:00 97.7 86 18 109/64 93 Room Air 06/02/16 20:00 97.9 87 19 105/66 94 Room Air 06/02/16 16:21 97.5 87 19 109/63 98 Room Air 06/02/16 12:00 96.8 86 18 109/65 94 Room Air Intake and Output 06/02/16 06/03/16 19:00 07:00 Intake Total 949.44 ml 1405.60 ml Output Total 0 ml 6 ml Balance 949.44 ml 1399.60 ml Intake Oral 480 ml 1220 ml IV Total 469.44 ml 185.60 ml Drainage Total 0 ml 6 ml # Voids 3 4 Laboratory Tests 06/03/16 04:00: Activated Partial Thromboplast Time 65H Height (Feet): 5 Height (Inches): 6.00 Weight (Pounds): 196 Objective General: alert, cooperative, no distress, appears stated age Head: normocephalic, without obvious abnormality, atraumatic Eyes: conjunctivae/corneas clear. PERRL, EOM's intact Throat: lips, mucosa, and tongue normal. MMM Neck: supple, symmetrical, trachea midline, and no JVD Lungs: clear to auscultation bilaterally Heart: regular rate and rhythm, S1, S2 normal, no murmur, click, rub or gallop Abdomen: soft, non-tender, non-distended, bowel sounds normal; no masses or organomegaly Extremities: extremities normal, atraumatic, no cyanosis or edema, +LUE edema, slightly tender to touch Pulses: 2+ and symmetric Skin: skin color, texture, turgor normal; no rashes or lesions Neurologic: grossly normal, no focal deficits DEYA SHAH Jun 03, 2016 11:07
[2016-06-03] MEDS: Silver Sulfadiazine Cream 25gm TOPIC SCH (11:31)
[2016-06-03 12:00] VITALS: BP 108/69
[2016-06-03 16:00] VITALS: BP 129/73
[2016-06-03 16:10] LABS: BASOPHILS % (AUTO) 0.7 % (0.0-2.0); EOSINOPHILS % (AUTO) 3.3 % (0.0-3.0); LYMPHOCYTES % (AUTO) 32.1 % (20.0-45.0); MEAN CORPUSCULAR HEMOGLOBIN 26.9 PG (27.0-31.0); MEAN CORPUSCULAR HGB CONC 31.8 G/DL (32.0-36.0); MEAN CORPUSCULAR VOLUME 85 FL (80-99); MEAN PLATELET VOLUME 3.6 FL (6.5-10.1); MONOCYTES % (AUTO) 3.7 % (1.0-10.0); NEUTROPHILS % (AUTO) 60.2 % (45.0-75.0); PLATELET COUNT 512 K/UL (150-450); RED BLOOD COUNT 4.13 M/UL (4.20-5.40); RED CELL DISTRIBUTION WIDTH 12.1 % (11.6-14.8); WHITE BLOOD COUNT 12.8 K/UL (4.8-10.8)
[2016-06-03] MEDS ORDERED: Xarelto 10mg tab ORAL SCH (18:00)
[2016-06-03 20:00] VITALS: BP 116/73
[2016-06-04] MEDS: Clindamycin 150mg cap ORAL SCH ×3 (05:19→21:42)
[2016-06-04 08:34] VITALS: BP 115/57
[2016-06-04] MEDS: Docusate 100mg cap ORAL SCH ×2 (08:43→17:04)
[2016-06-04] MEDS: Lactobacillus-GG tablet ORAL SCH ×2 (08:44→17:04)
[2016-06-04] MEDS: Silver Sulfadiazine Cream 25gm TOPIC SCH (08:44)
[2016-06-04] MEDS: Xarelto 15mg tab ORAL SCH ×2 (08:44→17:04)
[2016-06-04 12:04] VITALS: BP 113/65
--- NOTE | 2016-06-04 13:17 | General Progress Note ---
Assessment/Plan Status: stable Assessment/Plan (1) Abscess of axillary region Assessment & Plan: s/p I+D of bilateral axillae, POD#16 s/p stage 2 surgery POD#12 Cont IV abx Pain control Supp care f/u blood cx f/u wound cultures ICD Codes: L02.419 - Cutaneous abscess of limb, unspecified SNOMED: 44346987 (2) Acute deep vein thrombosis (DVT) of brachial vein of left upper extremity Assessment & Plan: DC heparin gtt start xarelto 15mg bid for 3 weeks, then 20mg daily s/p removal of PICC line in LUE ICD Codes: I82.622 - Acute embolism and thrombosis of deep veins of left upper extremity SNOMED: 843391392519629 Subjective Date patient seen: Jun 04, 2016 Time patient seen: 13:17 ROS Limited/Unobtainable: No Constitutional: Reports: no symptoms HEENT: Reports: no symptoms Cardiovascular: Reports: no symptoms Respiratory: Reports: no symptoms Gastrointestinal/Abdominal: Reports: no symptoms Genitourinary: Reports: no symptoms Neurologic/Psychiatric: Reports: no symptoms Endocrine: Reports: no symptoms Hematologic/Lymphatic: Reports: no symptoms Allergies: Coded Allergies: CEFACLOR (Verified Allergy, Unknown, 05/18/16) All Systems: reviewed and negative except above Subjective No acute o/n events Pain controlled OOB Objective Last 24 Hour Vital Signs Date Time Temp Pulse Resp B/P Pulse Ox O2 Delivery O2 Flow Rate FiO2 06/04/16 12:04 97.5 80 19 113/65 97 Room Air 06/04/16 08:34 97.9 85 19 115/57 95 Room Air 06/03/16 20:00 97.7 87 17 116/73 98 Room Air 06/03/16 16:00 97.5 86 18 129/73 98 Room Air 06/03/16 15:13 98.2 Intake and Output 06/03/16 06/04/16 19:00 07:00 Intake Total 636.48 ml 500 ml Balance 636.48 ml 500 ml Intake Oral 480 ml 500 ml IV Total 156.48 ml # Voids 3 6 # Bowel Movements 1 1 Height (Feet): 5 Height (Inches): 6.00 Weight (Pounds): 196 Objective General: alert, cooperative, no distress, appears stated age Head: normocephalic, without obvious abnormality, atraumatic Eyes: conjunctivae/corneas clear. PERRL, EOM's intact Throat: lips, mucosa, and tongue normal. MMM Neck: supple, symmetrical, trachea midline, and no JVD Lungs: clear to auscultation bilaterally Heart: regular rate and rhythm, S1, S2 normal, no murmur, click, rub or gallop Abdomen: soft, non-tender, non-distended, bowel sounds normal; no masses or organomegaly Extremities: extremities normal, atraumatic, no cyanosis or edema Pulses: 2+ and symmetric Skin: skin color, texture, turgor normal; no rashes or lesions Neurologic: grossly normal, no focal deficits Mabel Royal M.D. Jun 04, 2016 13:17
[2016-06-04 16:00] VITALS: BP 116/51
[2016-06-04 19:47] VITALS: BP 119/71
[2016-06-05] MEDS: Clindamycin 150mg cap ORAL SCH ×3 (06:14→21:08)
[2016-06-05 08:27] VITALS: BP 117/58
[2016-06-05] MEDS: Xarelto 15mg tab ORAL SCH ×2 (08:30→17:19)
[2016-06-05] MEDS: Docusate 100mg cap ORAL SCH ×2 (08:30→17:19)
[2016-06-05] MEDS: Lactobacillus-GG tablet ORAL SCH ×2 (08:31→17:20)
[2016-06-05] MEDS: Silver Sulfadiazine Cream 25gm TOPIC SCH (08:32)
--- NOTE | 2016-06-05 09:38 | General Progress Note ---
Progress Note Progress Note Pt seen and examined. POD # 13 now from closure of bilateral axillary wounds. Doing well. Both flaps intact and in place. The distal tip of the left axillary flap with ischemic changes over the past few days but is stable. Have been applying silvadene to the area. On Xeralto for her DVT. Plan: DC home in Monday AM on abx and pain meds. Will need daily dressing changes. Given the current status of the wounds I anticipate it will be about 4-6 more weeks before healing is complete and she may require woundcare in the time between when she returns home. ANAY Yarbrough MD Jun 05, 2016 09:38
[2016-06-05 11:52] VITALS: BP 135/63
--- NOTE | 2016-06-05 12:53 | General Progress Note ---
Assessment/Plan Status: stable Assessment/Plan (1) Abscess of axillary region Assessment & Plan: s/p I+D of bilateral axillae, POD#17 s/p stage 2 surgery POD#13 Cont IV abx Pain control Supp care f/u blood cx f/u wound cultures ICD Codes: L02.419 - Cutaneous abscess of limb, unspecified SNOMED: 07682642 (2) Acute deep vein thrombosis (DVT) of brachial vein of left upper extremity Assessment & Plan: DC heparin gtt start xarelto 15mg bid for 3 weeks, then 20mg daily s/p removal of PICC line in LUE ICD Codes: I82.622 - Acute embolism and thrombosis of deep veins of left upper extremity SNOMED: 935429606340072 Subjective Date patient seen: Jun 05, 2016 Time patient seen: 12:52 ROS Limited/Unobtainable: No Constitutional: Reports: no symptoms HEENT: Reports: no symptoms Cardiovascular: Reports: no symptoms Respiratory: Reports: no symptoms Gastrointestinal/Abdominal: Reports: no symptoms Genitourinary: Reports: no symptoms Neurologic/Psychiatric: Reports: no symptoms Endocrine: Reports: no symptoms Hematologic/Lymphatic: Reports: no symptoms Allergies: Coded Allergies: CEFACLOR (Verified Allergy, Unknown, 05/18/16) All Systems: reviewed and negative except above Subjective No acute o/n events Pain controlled OOB Objective Last 24 Hour Vital Signs Date Time Temp Pulse Resp B/P Pulse Ox O2 Delivery O2 Flow Rate FiO2 06/05/16 11:52 97.5 74 19 135/63 99 Room Air 06/05/16 09:53 97.5 06/05/16 08:27 97.5 74 19 117/58 96 Room Air 06/04/16 19:47 97.9 85 18 119/71 95 Room Air 06/04/16 16:00 97.3 78 18 116/51 98 Room Air Intake and Output 06/04/16 06/05/16 19:00 07:00 Intake Total 720 ml 1040 ml Balance 720 ml 1040 ml Intake Oral 720 ml 1040 ml # Voids 1 5 Height (Feet): 5 Height (Inches): 6.00 Weight (Pounds): 196 Objective General: alert, cooperative, no distress, appears stated age Head: normocephalic, without obvious abnormality, atraumatic Eyes: conjunctivae/corneas clear. PERRL, EOM's intact Throat: lips, mucosa, and tongue normal. MMM Neck: supple, symmetrical, trachea midline, and no JVD Lungs: clear to auscultation bilaterally Heart: regular rate and rhythm, S1, S2 normal, no murmur, click, rub or gallop Abdomen: soft, non-tender, non-distended, bowel sounds normal; no masses or organomegaly Extremities: extremities normal, atraumatic, no cyanosis or edema Pulses: 2+ and symmetric Skin: skin color, texture, turgor normal; no rashes or lesions Neurologic: grossly normal, no focal deficits Mabel oRyal M.D. Jun 05, 2016 12:53
[2016-06-05 16:00] VITALS: BP 122/72
[2016-06-05 19:43] VITALS: BP 120/66
[2016-06-06] MEDS: Clindamycin 150mg cap ORAL SCH ×3 (05:03→21:46)
[2016-06-06] MEDS: Lactobacillus-GG tablet ORAL SCH ×2 (08:07→17:28)
[2016-06-06] MEDS: Docusate 100mg cap ORAL SCH ×2 (08:07→17:28)
[2016-06-06] MEDS: Silver Sulfadiazine Cream 25gm TOPIC SCH (08:07)
[2016-06-06] MEDS: Xarelto 15mg tab ORAL SCH ×2 (08:07→17:28)
[2016-06-06 08:27] VITALS: BP 125/67
[2016-06-06 12:00] VITALS: BP 119/65
[2016-06-06] MEDS ORDERED: DiphenhydrAMINE 50mg/ml Inj IVP PRN ×2 (12:30→12:53)
[2016-06-06] MEDS ORDERED: BACTRIM DS TAB1 EAC1 ORAL (12:32)
[2016-06-06] MEDS ORDERED: XARELTO15 MG ORAL (12:32)
[2016-06-06] MEDS ORDERED: NEOSPORIN OINT30 GM TOPIC (12:32)
[2016-06-06] MEDS ORDERED: SILVADENE CREAM50 GM TOPIC (12:33)
[2016-06-06] MEDS ORDERED: DILAUDID2 MG ORAL (12:33)
--- NOTE | 2016-06-06 12:51 | General Progress Note ---
Assessment/Plan Status: stable Assessment/Plan (1) Abscess of axillary region Assessment & Plan: s/p I+D of bilateral axillae, POD#18 s/p stage 2 surgery POD#14 Cont IV abx Pain control Supp care f/u blood cx f/u wound cultures ICD Codes: L02.419 - Cutaneous abscess of limb, unspecified SNOMED: 52146620 (2) Acute deep vein thrombosis (DVT) of brachial vein of left upper extremity Assessment & Plan: DC heparin gtt start xarelto 15mg bid for 3 weeks, then 20mg daily s/p removal of PICC line in LUE ICD Codes: I82.622 - Acute embolism and thrombosis of deep veins of left upper extremity SNOMED: 444832854996612 Subjective Date patient seen: Jun 06, 2016 Time patient seen: 12:51 Allergies: Coded Allergies: CEFACLOR (Verified Allergy, Unknown, 05/18/16) Subjective No acute o/n events Pain controlled OOB Plan for d/c tomorrow Objective Last 24 Hour Vital Signs Date Time Temp Pulse Resp B/P Pulse Ox O2 Delivery O2 Flow Rate FiO2 06/06/16 08:27 97.0 80 19 125/67 98 Room Air 06/05/16 19:43 97.9 83 19 120/66 100 Room Air 06/05/16 16:00 97.9 83 19 122/72 100 Room Air 06/05/16 14:19 97.5 Intake and Output 06/05/16 06/06/16 19:00 07:00 Intake Total 520 ml 940 ml Balance 520 ml 940 ml Intake Oral 520 ml 940 ml # Voids 3 4 Height (Feet): 5 Height (Inches): 6.00 Weight (Pounds): 196 Objective General: alert, cooperative, no distress, appears stated age Head: normocephalic, without obvious abnormality, atraumatic Eyes: conjunctivae/corneas clear. PERRL, EOM's intact Throat: lips, mucosa, and tongue normal. MMM Neck: supple, symmetrical, trachea midline, and no JVD Lungs: clear to auscultation bilaterally Heart: regular rate and rhythm, S1, S2 normal, no murmur, click, rub or gallop Abdomen: soft, non-tender, non-distended, bowel sounds normal; no masses or organomegaly Extremities: extremities normal, atraumatic, no cyanosis or edema Pulses: 2+ and symmetric Skin: skin color, texture, turgor normal; no rashes or lesions Neurologic: grossly normal, no focal deficits Mabel Royal M.D. Jun 06, 2016 12:51
[2016-06-06 17:00] VITALS: BP 138/70
[2016-06-06] MEDS ORDERED: Norco 5mg/325mg tab ORAL PRN (19:00)
[2016-06-06] MEDS ORDERED: Norco 10mg/325mg tab ORAL PRN (19:00)
[2016-06-06 20:00] VITALS: BP 117/60
[2016-06-07] MEDS: Clindamycin 150mg cap ORAL SCH (05:46)
[2016-06-07 08:00] VITALS: BP 135/78
[2016-06-07] MEDS: Xarelto 15mg tab ORAL SCH (08:03)
[2016-06-07] MEDS: Docusate 100mg cap ORAL SCH (08:04)
[2016-06-07] MEDS: Lactobacillus-GG tablet ORAL SCH (08:04)
[2016-06-07] MEDS: Silver Sulfadiazine Cream 25gm TOPIC SCH (09:09)
--- NOTE | 2016-06-07 11:20 | Discharge Summary ---
Discharge Summary Hospital Course Date of Admission May 18, 2016 at 17:48 Date of Discharge 06/07/16 Admitting Diagnosis hydadenitis, abscess Reason for Hospitalization: IV antibiotics, possible surgery HPI 36 y/o AA female with hx of hydradenitis for several years, not diagnosed until recently. She has significant disease in her bilateral axillae. She has taken abx as an outpatient before (doxy) and that stopped working according to the pt. Denied ever having fevers/chills, never has had surgery. She states that the pain has been increasing lately, preventing her from accomplishing some tasks, and that OTC pain meds are not longer providing relief. She takes hctz for well controlled HTN and claritin for allergies. Denies smoking, occasional alcohol use, no recreational drug use. Consultations Plastic surgery Procedures 05/19/16 1. Radical excision of infected left axillary mass. 2. Radical excision of infected right axillary mass. 3. Excision of right breast abscess. 4. Elevation of a thoracodorsal artery based flap for staged closure of left axillary wound. 5. Elevation of a thoracodorsal artery flap for staged closure of right axillary wound. 6. Elevation of a right chest wall flap for staged closure of right axillary wound. 7. Elevation of a left chest wall flap for staged closure of left axillary wound 05/23/16 1. Preparation of left axillary wound for flap closure. 2. Flap advancement closure of left axillary wound. 3. Preparation of right axillary wound for flap closure. 4. Flap readvancement for closure of right axillary wound. 5. Complex closure of right breast wound. Hospital Course Pt was admitted and started on IV antibiotics. Pt was seen by plastic surgery. She underwent I&D of bilateral axillae on 05/19/16. Pt then underwent stage 2 of surgery with flap closure on 05/23/16. Pt tolerated the procedure well but required IV pain medications for pain control and continued daily wound care while in-house until infection stabilized. Pt was also found to have acute DVT of LUE in setting of PICC. PICC was then removed. Pt was started in anticoagulation which she tolerated well. Prior to d/c, pt was HD stable, tolerating PO, and ambulating w/o assistance. Discharge Medications New Medications: Hydromorphone HCl (Dilaudid) 2 Mg Tablet 2 MG ORAL Q4H PRN, #100 TAB 0 Refills severe pain Trimethoprim/Sulfamethoxazole 160/800* (Bactrim Ds Tablet*) 1 Each Tablet 1 TAB ORAL Q12H, #14 TAB 0 Refills Neomycin/Polymyxin/Bacitracin (Triple Antibiotic Ointment) 28 Gm Oint...g. 1 APPLIC TOPIC BIDPRN PRN for 30 Days, GM Rivaroxaban (Xarelto) 15 Mg Tablet 15 MG ORAL BID for 17 Days, TAB Silver Sulfadiazine (Silver Sulfadiazine) 50 Gm Cream..g. 1 APPLIC TOPIC DAILY for 30 Days, GM Continued Medications: Hydrochlorothiazide* (Hydrochlorothiazide*) 25 Mg Tablet 25 MG ORAL DAILY, TAB Discharge Condition Upon Discharge: stable Discharge Disposition Patient was discharged to Home with Home Health() Discharge Diagnoses: (1) Abscess of axillary region (2) Acute deep vein thrombosis (DVT) of brachial vein of left upper extremity (3) Hidradenitis axillaris Mabel Royal M.D. Jun 07, 2016 11:20
== END 2016-06-07 11:35 | disposition home health service (06) | DRG 577 ==
LOC: EMR 16:45 → 3E 17:48 → EDBEDREQ 18:12 → 3E 20:51 → 4E 06-04 19:09 → 3E 06-06 09:51
PROC: 0JBF0ZZ Excision of Left Upper Arm Subcutaneous Tissue and Fascia, Open Approach (ICD-10-PCS; principal; 2016-05-19 10:45)
PROC: 0H8BXZZ Division of Right Upper Arm Skin, External Approach (ICD-10-PCS; principal; 2016-05-19 10:45)
PROC: 0HBTXZZ (ICD-10-PCS; principal; 2016-05-19 10:45)
PROC: 0H8CXZZ Division of Left Upper Arm Skin, External Approach (ICD-10-PCS; principal; 2016-05-19 10:45)
PROC: 0JBD0ZZ Excision of Right Upper Arm Subcutaneous Tissue and Fascia, Open Approach (ICD-10-PCS; principal; 2016-05-19 10:45)
PROC: 0HXCXZZ Transfer Left Upper Arm Skin, External Approach (ICD-10-PCS; 2016-05-23)
PROC: 02HV33Z Insertion of Infusion Device into Superior Vena Cava, Percutaneous Approach (ICD-10-PCS; 2016-05-23)
PROC: B518ZZA Fluoroscopy of Superior Vena Cava, Guidance (ICD-10-PCS; 2016-05-23)
PROC: 0HBTXZZ (ICD-10-PCS; 2016-05-23)
PROC: 0HXBXZZ Transfer Right Upper Arm Skin, External Approach (ICD-10-PCS; 2016-05-23)
DX: L73.2 Hidradenitis suppurativa (principal); I82.622 Acute embolism and thrombosis of deep veins of left upper extremity; I10 Essential (primary) hypertension; L02.412 Cutaneous abscess of left axilla; L02.411 Cutaneous abscess of right axilla; N61.1 Abscess of the breast and nipple
CPT/HCPCS: 36415; 36569; 71010; 76937; 80048; 80053; 81003; 81025; 85025; 85610; 85730; 86850; 86900; 86901; 87040; 87086; 93005; 93971; 94003; 94150; J2250; J2405; J2765; S0077